=== PATIENT | female | born 1970 | race Two or more races ===

== ENCOUNTER 2022-11-09 19:04 | Emergency (ER) | payer MEDICAID, OTHER ==
[~2022-11-09] VITALS: Ht 154.9 cm; Wt 104.5 kg
[2022-11-09 19:28] VITALS: BP 145/74; PULSE 111; RESP 20; TEMP 98.5; O2SAT 97
[2022-11-09] MEDS ORDERED: CYCL-839 PO (22:42)
[2022-11-09] MEDS ORDERED: HYDR-4902 PO (22:42)
[2022-11-09] MEDS ORDERED: DexAMETHasone SOD PHOS 10MG/1ML VIAL INJ IM ONE (22:45)
[2022-11-09] MEDS ORDERED: KETOROLAC TROMETH 60MG/2ML VIAL IM ONE (22:45)
[2022-11-09] MEDS ORDERED: HYDROcodone-ACET 7.5/325MG TAB PO ONE (22:45)
== END 2022-11-09 22:56 | disposition home or self-care (01) ==
LOC: ER 19:06
DX: G89.29 Other chronic pain (principal); M54.50 Low back pain, unspecified; M62.838 Other muscle spasm; E11.9 Type 2 diabetes mellitus without complications
CPT/HCPCS: 72100; 82962; 96372; 99284; J1100; J1885

== ENCOUNTER 2023-09-13 13:27 | Inpatient (IN) | payer MEDICAID ==
[~2023-09-13] VITALS: Ht 154.9 cm; Wt 106.3 kg
[~2023-09-13 13:27] MED LIST: CYCL-839 PO; HYDR-4902 PO
[2023-09-13 14:48] LABS: Urine Bacteria None Seen /hpf (None Seen)
[2023-09-13 15:11] LABS: Basophils # (auto) 0.1 10 ^3/uL (0-0.2); Eosinophils # (auto) 0.4 10 ^3/uL (0-0.8); Eosinophils % (auto) 2.9 % (0.0-7.0); Monocytes # (auto) 0.6 10 ^3/uL (0-1.3)
[2023-09-13 15:12] LABS: Hematocrit 42.1 % (36.0-46.0); Lymphocytes # (auto) 5.1 10 ^3/uL (0.4-5.4); Lymphocytes % (auto) 36.1 % (10.0-50.0); Mean Corpuscular Hgb Conc. 33.3 g/dL (32.0-36.0); Mean Corpuscular Volume 81.1 fL (80.0-100.0); Monocytes % (auto) 4.5 % (0.0-12.0); Neutrophils # (auto) 7.9 10 ^3/uL (1.6-8.6); Neutrophils % (auto) 55.5 % (37.0-80.0); Nucleated Red Blood Cells % 0.1 %; Red Cell Distribution Width 14.8 % (11.8-14.3); White Blood Cell 14.1 10^3/uL (4.4-10.8)
[2023-09-13 15:30] LABS: Alanine Aminotransferase 34 U/L (7-40); Albumin 4.3 g/dL (3.2-4.8); Alkaline Phosphatase 123 U/L (46-116); Anion Gap 6 (5-15); Aspartate Aminotransferase 23 U/L (13-40); BUN/Creatinine Ratio 21.5 (10.0-20.0); Bilirubin, Total 0.3 mg/dL (0.2-1.0); Blood Urea Nitrogen 17 mg/dL (9-23); Calcium 10.2 mg/dL (8.7-10.4); Carbon Dioxide 28 mmol/L (20-30); Chloride 106 mmol/L (98-107); Glucose 163 mg/dL (74-106); Potassium 4.4 mmol/L (3.5-5.1); Sodium 140 mmol/L (136-145); Total Protein 7.4 g/dL (5.7-8.2)
[2023-09-13 15:40] LABS: Lactic Acid w/Reflex 2.1 mmol/L (0.4-2.0)
[2023-09-13 16:09] LABS: Urine Blood Negative /uL (Negative); Urine Budding Yeast OCCASIONAL /hpf (None Seen); Urine Clarity Clear (Clear); Urine Color Colorless (Yellow); Urine Mucus FEW (None Seen); Urine Protein, UAD Negative (Negative); Urine Specific Gravity 1.011 (1.001-1.035); Urine Urobilinogen Normal (Negative); Urine WBC 1 /hpf (0 - 5)
[2023-09-13] MEDS: SODIUM CHLORIDE 0.9% 1,000 ML IV ONE (17:30)
[2023-09-13] MEDS: cefTRIAXone 1GM/50ML D5W 50 ML IV ONE ×2 (18:56→18:59)
[2023-09-13] MEDS: HYDROcodone-ACET 5/325MG TAB PO ONE ×2 (18:57→21:29)
[2023-09-13] MEDS: DexAMETHasone SOD PHOS 10MG/1ML VIAL INJ IV ONE (18:58)
[2023-09-13] MEDS: DexAMETHasone SOD PHOS 4 MG/1ML SDV INJ ONE (18:58)
[2023-09-13] MEDS: KETOROLAC TROMETH 30 MG/ML 1ML VIAL IV ONE ×2 (18:58→21:29)
[2023-09-13] MEDS ORDERED: DOCUSATE SOD 100 MG CAP PO PRN (22:00)
[2023-09-13] MEDS ORDERED: ONDANSETRON HCL 4 MG/2 ML VIAL IV PRN (22:00)
[2023-09-13] MEDS: SODIUM CHLOR 0.9% PF (SALINE LOCK) 10ML VIAL/SYR IV SCH (22:28)
[2023-09-13 22:31] LABS: Erythrocyte Sedimentation Rate 40 mm/hr (0-20)
[2023-09-13] MEDS ORDERED: MORPHINE SULFATE INJ 2 MG/ml SYRG IV PRN (22:45)
[2023-09-13] MEDS ORDERED: NITROGLYCERIN 0.4 MG SL TAB SL PRN (22:45)
[2023-09-13] MEDS ORDERED: DEXTROSE (50%) 50ML SYRG IV PRN (23:15)
[2023-09-14] VITALS (8 sets, daily range): BP systolic 124–136; BP diastolic 77–92; PULSE 73–89; RESP 17–18; TEMP 97.5–98.2; O2SAT 94–97
[2023-09-14] MEDS: ACCU-CHEK COMFORT CURVE STRIP VI SCH (05:58)
[2023-09-14] MEDS: InsuLIN REG 1unit/0.01ml Soln (100units/ml) SC SCH ×2 (05:58→21:42)
[2023-09-14 08:38] LABS: Basophils # (auto) 0 10 ^3/uL (0-0.2); Eosinophils # (auto) 0 10 ^3/uL (0-0.8); Mean Corpuscular Hemoglobin 26.9 pg (28.0-32.0); Monocytes # (auto) 0.2 10 ^3/uL (0-1.3); Neutrophils # (auto) 12.7 10 ^3/uL (1.6-8.6)
[2023-09-14 08:39] LABS: Basophils % (auto) 0.1 % (0.0-2.0); Hematocrit 41.4 % (36.0-46.0); Hemoglobin 13.5 g/dL (12.2-16.2); Lymphocytes # (auto) 2.6 10 ^3/uL (0.4-5.4); Lymphocytes % (auto) 16.6 % (10.0-50.0); Mean Corpuscular Hgb Conc. 32.7 g/dL (32.0-36.0); Mean Corpuscular Volume 82.2 fL (80.0-100.0); Monocytes % (auto) 1.1 % (0.0-12.0); Neutrophils % (auto) 82.2 % (37.0-80.0); Nucleated Red Blood Cells % 0.1 %; Red Blood Cells 5.03 10^6/uL (4.0-5.20); Red Cell Distribution Width 14.5 % (11.8-14.3); White Blood Cell 15.5 10^3/uL (4.4-10.8)
[2023-09-14 08:56] LABS: Alanine Aminotransferase 36 U/L (7-40); Albumin 4.2 g/dL (3.2-4.8); Alkaline Phosphatase 118 U/L (46-116); Anion Gap 10 (5-15); Aspartate Aminotransferase 17 U/L (13-40); BUN/Creatinine Ratio 19.4 (10.0-20.0); Blood Urea Nitrogen 14 mg/dL (9-23); Calcium 9.5 mg/dL (8.5-10.1); Carbon Dioxide 22 mmol/L (20-30); Chloride 106 mmol/L (98-107); Glucose 209 mg/dL (74-106); Potassium 4.4 mmol/L (3.5-5.1); Sodium 138 mmol/L (136-145)
[2023-09-14 08:57] LABS: Bilirubin, Total 0.2 mg/dL (0.2-1.0); Total Protein 7.4 g/dL (5.7-8.2)
[2023-09-14] MEDS ORDERED: metroNIDAZOLE 500MG/100ML 100 ML IV ONE (11:15)
[2023-09-14] MEDS: KETOROLAC TROMETH 30 MG/ML 1ML VIAL IV ONE (11:15)
[2023-09-14] MEDS: cefTRIAXone 1GM/50ML D5W 50 ML IV SCH (11:31)
[2023-09-14] MEDS: levoFLOXacin 500MG 100 ML IV ONE (13:00)
[2023-09-14] MEDS: metroNIDAZOLE 500MG/100ML 100 ML IV SCH (14:03)
[2023-09-14 17:38] LABS: Erythrocyte Sedimentation Rate 35 mm/hr (0-20)
[2023-09-15] VITALS (7 sets, daily range): BP systolic 106–125; BP diastolic 56–77; PULSE 70–83; RESP 17–20; TEMP 97.8–98.3; O2SAT 94–98
[2023-09-15] MEDS: MORPHINE SULFATE INJ 2 MG/ml SYRG IV PRN (04:21)
[2023-09-15 06:48] LABS: Basophils # (auto) 0 10 ^3/uL (0-0.2); Basophils % (auto) 0.2 % (0.0-2.0); Eosinophils # (auto) 0 10 ^3/uL (0-0.8); Eosinophils % (auto) 0.1 % (0.0-7.0); Hemoglobin 12.8 g/dL (12.2-16.2); Mean Corpuscular Hemoglobin 26.8 pg (28.0-32.0); Monocytes # (auto) 0.9 10 ^3/uL (0-1.3); Monocytes % (auto) 4.5 % (0.0-12.0); Red Blood Cells 4.78 10^6/uL (4.0-5.20); Red Cell Distribution Width 14.4 % (11.8-14.3)
[2023-09-15 06:50] LABS: Hematocrit 39.5 % (36.0-46.0); Lymphocytes # (auto) 5.1 10 ^3/uL (0.4-5.4); Lymphocytes % (auto) 25.2 % (10.0-50.0); Mean Corpuscular Hgb Conc. 32.4 g/dL (32.0-36.0); Mean Corpuscular Volume 82.5 fL (80.0-100.0); Neutrophils # (auto) 14.1 10 ^3/uL (1.6-8.6); White Blood Cell 20.2 10^3/uL (4.4-10.8)
[2023-09-15 07:24] LABS: Alanine Aminotransferase 27 U/L (7-40); Albumin 3.8 g/dL (3.2-4.8); Alkaline Phosphatase 103 U/L (46-116); Anion Gap 7 (5-15); Aspartate Aminotransferase 15 U/L (13-40); BUN/Creatinine Ratio 19.7 (10.0-20.0); Blood Urea Nitrogen 13 mg/dL (9-23); Calcium 9.1 mg/dL (8.5-10.1); Carbon Dioxide 24 mmol/L (20-30); Chloride 109 mmol/L (98-107); Glucose 109 mg/dL (74-106); Potassium 4.4 mmol/L (3.5-5.1); Sodium 140 mmol/L (136-145)
[2023-09-15 07:25] LABS: Bilirubin, Total 0.3 mg/dL (0.2-1.0); Total Protein 6.7 g/dL (5.7-8.2)
[2023-09-15] MEDS: levoFLOXacin 500MG 100 ML IV SCH (11:14)
[2023-09-15] MEDS: FLUCONAZOLE 200MG/100ML 100 ML IV ONE (12:40)
[2023-09-16] VITALS (7 sets, daily range): BP systolic 95–132; BP diastolic 48–87; PULSE 64–86; RESP 17–19; TEMP 97.3–98; O2SAT 94–97
[2023-09-16 05:59] LABS: Basophils # (auto) 0.1 10 ^3/uL (0-0.2); Basophils % (auto) 0.5 % (0.0-2.0); Eosinophils # (auto) 0.3 10 ^3/uL (0-0.8); Eosinophils % (auto) 1.9 % (0.0-7.0); Hematocrit 38.4 % (36.0-46.0); Hemoglobin 12.7 g/dL (12.2-16.2); Lymphocytes # (auto) 6.5 10 ^3/uL (0.4-5.4); Lymphocytes % (auto) 42.5 % (10.0-50.0); Mean Corpuscular Hemoglobin 27.4 pg (28.0-32.0); Mean Corpuscular Hgb Conc. 33.1 g/dL (32.0-36.0); Mean Corpuscular Volume 82.9 fL (80.0-100.0); Monocytes # (auto) 0.8 10 ^3/uL (0-1.3); Monocytes % (auto) 5.4 % (0.0-12.0); Neutrophils # (auto) 7.6 10 ^3/uL (1.6-8.6); Neutrophils % (auto) 49.7 % (37.0-80.0); Nucleated Red Blood Cells % 0.1 %; Red Blood Cells 4.63 10^6/uL (4.0-5.20); Red Cell Distribution Width 14.6 % (11.8-14.3); White Blood Cell 15.3 10^3/uL (4.4-10.8)
[2023-09-16 07:09] LABS: Erythrocyte Sedimentation Rate 19 mm/hr (0-20)
[2023-09-16] MEDS: FLUCONAZOLE 200MG/100ML 100 ML IV SCH (09:06)
[2023-09-16] MEDS: ACETAMINOPHEN 325 MG TAB PO PRN (11:41)
[2023-09-16] MEDS: CALCIUM CARB 500 MG CHEW TAB PO PRN (18:44)
[2023-09-17] MEDS: HYDROcodone-ACET 5/325MG TAB PO PRN (00:37)
[2023-09-17 01:00] VITALS: BP 109/66; PULSE 77; RESP 18; TEMP 97.6; O2SAT 96
[2023-09-17 05:00] VITALS: BP 100/62; PULSE 71; RESP 18; TEMP 97.5; O2SAT 95
[2023-09-17 08:50] VITALS: BP 122/77; PULSE 81; RESP 20; TEMP 97.3; O2SAT 97
[2023-09-17 13:00] VITALS: BP 132/78; PULSE 85; RESP 18; TEMP 97.6; O2SAT 97
[2023-09-17] MEDS: KETOROLAC TROMETH 30 MG/ML 1ML VIAL IV ONE (15:26)
[2023-09-17] MEDS: LIDOCAINE 5% TOPICAL PATCH TOP ONE (15:27)
[2023-09-17 16:42] VITALS: BP 119/78; PULSE 79; RESP 20; TEMP 98; O2SAT 96
[2023-09-17 21:00] VITALS: BP 126/76; PULSE 102; RESP 20; TEMP 97.7; O2SAT 92
[2023-09-18 01:00] VITALS: BP 132/66; PULSE 84; RESP 17; TEMP 98.3; O2SAT 94
[2023-09-18 05:00] VITALS: BP 121/61; PULSE 76; RESP 20; TEMP 97.8; O2SAT 93
[2023-09-18 05:12] LABS: Basophils # (auto) 0.1 10 ^3/uL (0-0.2); Basophils % (auto) 0.5 % (0.0-2.0); Eosinophils # (auto) 0.5 10 ^3/uL (0-0.8); Lymphocytes # (auto) 6.2 10 ^3/uL (0.4-5.4); Lymphocytes % (auto) 39.4 % (10.0-50.0); Mean Corpuscular Hemoglobin 27.3 pg (28.0-32.0); Mean Corpuscular Hgb Conc. 33.3 g/dL (32.0-36.0); Mean Corpuscular Volume 81.9 fL (80.0-100.0); Monocytes % (auto) 6.2 % (0.0-12.0); Neutrophils % (auto) 50.9 % (37.0-80.0); Red Blood Cells 4.77 10^6/uL (4.0-5.20); Red Cell Distribution Width 14.5 % (11.8-14.3); White Blood Cell 15.6 10^3/uL (4.4-10.8)
[2023-09-18 05:23] LABS: Anion Gap 7 (5-15); Carbon Dioxide 24 mmol/L (20-30); Chloride 108 mmol/L (98-107); Potassium 4.3 mmol/L (3.5-5.1); Sodium 139 mmol/L (136-145)
[2023-09-18 05:24] LABS: Calcium 9.3 mg/dL (8.5-10.1)
[2023-09-18 05:29] LABS: BUN/Creatinine Ratio 20.8 (10.0-20.0); Blood Urea Nitrogen 15 mg/dL (9-23); Glucose 145 mg/dL (74-106)
[2023-09-18 08:46] VITALS: BP 123/78; PULSE 72; RESP 18; TEMP 97.9; O2SAT 95
[2023-09-18] MEDS: LIDOCAINE 5% TOPICAL PATCH TOP SCH (10:08)
[2023-09-18] MEDS ORDERED: PANT40TA2 PO (10:43)
[2023-09-18] MEDS ORDERED: LEVO500T91 PO (10:43)
[2023-09-18] MEDS ORDERED: METR-344 PO (10:43)
[2023-09-18] MEDS ORDERED: CARI250T PO (10:43)
[2023-09-18] MEDS ORDERED: PANTOPRAZOLE 40 MG/10 ML VIAL INJ IV ONE (10:45)
[2023-09-18] MEDS: CARISOPRODOL 350 MG TAB PO PRN (11:45)
[2023-09-18] MEDS: FLEET ENEMA(ADULT) 135 ML PR ONE (11:45)
[2023-09-18 13:00] VITALS: BP 122/81; PULSE 73; RESP 18; TEMP 98; O2SAT 95
[2023-09-18] MEDS: levoFLOXacin 500 MG TAB PO ONE (13:00)
[2023-09-18] MEDS: PANTOPRAZOLE 40 MG TAB PO ONE (13:04)
[2023-09-18] MEDS: metroNIDAZOLE 500 MG TAB PO ONE (13:04)
[2023-09-18] MEDS ORDERED: GASTROGRAFIN 120 ML SOL ONE (13:34)
[2023-09-18 17:55] VITALS: BP 125/80; PULSE 74; RESP 18; TEMP 97.8; O2SAT 98
== END 2023-09-18 18:50 | disposition home or self-care (01) | DRG 720 ==
LOC: ER 13:29 → OVERFLOW 22:45 → WEST WING 09-14 01:47
PROVIDERS: ADMIT Nurse Practitioner Family; ATTEND Nurse Practitioner Acute Care
DX: A41.9 Sepsis, unspecified organism (principal); N30.80 Other cystitis without hematuria; E11.65 Type 2 diabetes mellitus with hyperglycemia; E66.01 Morbid (severe) obesity due to excess calories; G89.29 Other chronic pain; K21.9 Gastro-esophageal reflux disease without esophagitis; M47.896 Other spondylosis, lumbar region; M48.061 Spinal stenosis, lumbar region without neurogenic claudication; Z68.41 Body mass index [BMI] 40.0-44.9, adult; Z83.3 Family history of diabetes mellitus; Z79.899 Other long term (current) drug therapy; Z79.4 Long term (current) use of insulin
CPT/HCPCS: 36415; 72148; 74176; 74280; 76856; 80048; 80053; 81001; 82962; 83036; 83605; 84484; 85025; 85652; 86141; 87040; 87086; 87088; 96360; G0378; J1100; J1450; J1815; J1885; J1956; J3490

== ENCOUNTER 2023-09-23 12:55 | Emergency (ER) | payer MEDICAID ==
[~2023-09-23] VITALS: Ht 154.9 cm; Wt 104.5 kg
[~2023-09-23 12:55] MED LIST changes: +CARI250T PO; -CYCL-839 PO; -HYDR-4902 PO; +LEVO500T91 PO; +METR-344 PO; +PANT40TA2 PO
[2023-09-23] MEDS: KETOROLAC TROMETH 60MG/2ML VIAL IM ONE (15:44)
[2023-09-23] MEDS: methylPREDNISolone SOD SUCC 125 MG/2 ML VL IM ONE (15:44)
[2023-09-23] MEDS: HYDROcodone-ACET 5/325MG TAB PO ONE (15:54)
[2023-09-23 16:30] VITALS: BP 124/75; PULSE 80; RESP 16; TEMP 97.8; O2SAT 97
[2023-09-23] MEDS ORDERED: CYCL-837 PO (16:35)
[2023-09-23] MEDS ORDERED: MELO7.5T7 PO (16:35)
== END 2023-09-23 16:33 | disposition home or self-care (01) ==
LOC: EDBD 12:55 → ER 12:55
DX: G89.29 Other chronic pain (principal); M54.59 Other low back pain; E11.9 Type 2 diabetes mellitus without complications; Z79.1 Long term (current) use of non-steroidal anti-inflammatories (NSAID); Z79.899 Other long term (current) drug therapy
CPT/HCPCS: 96372; 99284; J1885; J2919

== ENCOUNTER 2023-11-03 18:22 | Emergency (ER) | payer MEDICAID ==
[~2023-11-03] VITALS: Ht 154.9 cm; Wt 99.6 kg
[~2023-11-03 18:22] MED LIST changes: +CYCL-837 PO; +MELO7.5T7 PO
[2023-11-03 18:45] VITALS: BP 131/77; PULSE 96; RESP 18; O2SAT 94
[2023-11-03] MEDS ORDERED: GABA-1308 PO (20:40)
[2023-11-03] MEDS: KETOROLAC TROMETH 60MG/2ML VIAL IM ONE (20:51)
== END 2023-11-03 20:57 | disposition home or self-care (01) ==
LOC: ER 18:22
DX: E11.40 Type 2 diabetes mellitus with diabetic neuropathy, unspecified (principal); M54.16 Radiculopathy, lumbar region; Z79.899 Other long term (current) drug therapy
CPT/HCPCS: 96372; 99283; J1885

== ENCOUNTER → 2024-02-18 | Outpatient (CLI) | payer MEDICAID ==
[~2024-02-18] MED LIST changes: +GABA-1308 PO
[2024-02-18 11:29] LABS: Basophils # (auto) 0.1 10 ^3/uL (0-0.2); Basophils % (auto) 0.6 % (0.0-2.0); Eosinophils # (auto) 0.3 10 ^3/uL (0-0.8); Eosinophils % (auto) 2.9 % (0.0-7.0); Hematocrit 42.1 % (36.0-46.0); Hemoglobin 13.9 g/dL (12.2-16.2); Lymphocytes # (auto) 4.3 10 ^3/uL (0.4-5.4); Lymphocytes % (auto) 36.5 % (10.0-50.0); Mean Corpuscular Hemoglobin 27.2 pg (28.0-32.0); Mean Corpuscular Hgb Conc. 33.1 g/dL (32.0-36.0); Monocytes # (auto) 0.8 10 ^3/uL (0-1.3); Monocytes % (auto) 6.6 % (0.0-12.0); Neutrophils # (auto) 6.2 10 ^3/uL (1.6-8.6); Neutrophils % (auto) 53.4 % (37.0-80.0); Platelet Count (auto) 333 10^3/uL (140-450); Red Blood Cells 5.13 10^6/uL (4.0-5.20); Red Cell Distribution Width 14.2 % (11.8-14.3); White Blood Cell 11.6 10^3/uL (4.4-10.8)
[2024-02-18 11:43] LABS: Urine Bacteria FEW /hpf (None Seen); Urine Blood Negative /uL (Negative); Urine Clarity Clear (Clear); Urine Color Light-Yellow (Yellow); Urine Protein, UAD Negative (Negative); Urine Urobilinogen Normal (Negative); Urine WBC 9 /hpf (0 - 5)
[2024-02-18 12:00] LABS: Alanine Aminotransferase 20 U/L (7-40); Albumin 4.4 g/dL (3.2-4.8); Alkaline Phosphatase 131 U/L (46-116); Anion Gap 8 (5-15); Aspartate Aminotransferase 13 U/L (13-40); BUN/Creatinine Ratio 13.8 (10.0-20.0); Bilirubin, Total 0.5 mg/dL (0.2-1.0); Blood Urea Nitrogen 12 mg/dL (9-23); Calcium 10.5 mg/dL (8.7-10.4); Carbon Dioxide 28 mmol/L (20-31); Chloride 107 mmol/L (98-107); Cholesterol 232 mg/dL (< 200); Glucose 102 mg/dL (74-106); HDL Cholesterol 44 mg/dL (40-59); LDL Cholesterol 150 mg/dL (< 100); Potassium 4.4 mmol/L (3.5-5.1); Sodium 143 mmol/L (136-145); Total Protein 7.6 g/dL (5.7-8.2); Triglycerides 151 mg/dL (< 150)
[2024-02-18 12:08] LABS: Wright Stain Ready for Review
== END | disposition home or self-care (01) ==
LOC: LAB 10:41
DX: E11.9 Type 2 diabetes mellitus without complications (principal); E55.9 Vitamin D deficiency, unspecified; E78.5 Hyperlipidemia, unspecified
CPT/HCPCS: 36415; 80053; 80061; 81001; 82306; 83036; 84443; 85025

== ENCOUNTER 2024-04-04 18:33 | Inpatient (IN) | payer MEDICAID ==
[~2024-04-04] VITALS: Ht 154.9 cm; Wt 100.2 kg
--- NOTE | 2024-04-04 19:27 | ED.PDOC ---
History of Present Illness HPI Comments 53F BIBA w/ prior Hx of being lactose intolerant and w/ prior Hx of tubal ligation which may be associated to the c/c of ABD pain. Since the pt is lactose intolerant the pt decided to eat yogurt which made the pt to start to have ABD pain which radiated to the back. PMHx of DM. Denies chills, fever, N/V/D, SOB, CP or other associated symptom's, modifiers, or recent injuries or sick contact at this time. Chief Complaint: Abdominal Pain Time Seen by MD: 18:45 Primary Care Provider: LUIS Reviewed Notes: Nurses Notes, Medications, Allergies Allergies: Coded Allergies: NO KNOWN ALLERGIES (Unverified , 11/09/22) Home Meds Active Scripts Gabapentin (Gabapentin) 100 Mg Cap, 1 CAP PO TID, #60 CAP 2 Refills Start with one capsule at sleep. Increase to one capsule twice daily after 3 days. Then one capsule three times daily after one week if tolerable. Prov:CIRO FORDE CIVIL ENGINEER [employer] 11/03/23 Meloxicam (Meloxicam) 7.5 Mg Tab, 1 TAB PO DAILY for 30 Days, #30 TAB 0 Refills Prov:EL WINTERS SUPPORTABILITY ENGINEER 09/23/23 Cyclobenzaprine Hcl (Cyclobenzaprine Hcl) 5 Mg Tab, 1 TAB PO QHSP PRN for 30 Days, #30 TAB 0 Refills Prov:EL WINTERS SUPPORTABILITY ENGINEER 09/23/23 Carisoprodol (Soma) 250 Mg Tab, 250 MG PO Q8HP PRN for 7 Days, #21 TAB Prov:JEAN BLAIR SUPPORTABILITY ENGINEER 09/18/23 Pantoprazole Sodium Sesquihydr (Protonix) 40 Mg Tab, 40 MG PO DAILY for 30 Days, #30 TAB 1 Refill Prov:JEAN BLAIR SUPPORTABILITY ENGINEER 09/18/23 Levofloxacin Hemihydrate (LEVAQUIN 500 MG) 500 Mg Tab, 500 MG PO DAILY for 7 Days, #7 TAB Prov:JEAN BLAIR SUPPORTABILITY ENGINEER 09/18/23 Metronidazole (Flagyl) 500 Mg Tab, 500 MG PO TID for 7 Days, #21 TAB Prov:JEAN BLAIR NP 09/18/23 Information Source: Patient, Emergency Med Personnel Mode of Arrival: EMS Severity: Moderate Timing: Minutes Duration: Since onset, Minutes Prehospital treatment: None Past Medical History PAST MEDICAL HISTORY: DM Surgical History: Tubal Ligation HEALTH CARE SANITARY TECHNICIAN History: No Pertinent HEALTH CARE SANITARY TECHNICIAN History Family History Family History: Reviewed,noncontributory to illness, Unknown Social History Smoker: Non-Smoker Alcohol: Denies ETOH Use Drugs: Denies Drug Use Lives In: Home Constitutional: denies: chills, diaphoresis, fatigue, fever, malaise, sweats, weakness, others EENTM: denies: blurred vision, double vision, ear bleeding, ear discharge, ear drainage, ear pain, ear ringing, eye pain, eye redness, hearing loss, mouth pain, mouth swelling, nasal discharge, nose bleeding, nose congestion, nose pain, photophobia, tearing, throat pain, throat swelling, voice changes, others Respiratory: denies: cough, hemoptysis, orthopnea, SOB at rest, shortness of breath, SOB with excertion, stridor, wheezing, others Cardiovascular: denies: chest pain, dizzy spells, diaphoresis, Dyspnea on exertion, edema, irregular heart beat, left arm pain, lightheadedness, palpitations, PND, syncope, others Gastrointestinal: reports: abdominal pain; denies: abdomen distended, blood streaked bowels, constipated, diarrhea, dysphagia, difficulty swallowing, hematemesis, melena, nausea, poor appetite, poor fluid intake, rectal bleeding, rectal pain, vomiting, others Genitourinary: denies: abnormal vagina bleeding, burning, dyspareunia, dysuria, flank pain, frequency, hematuria, incontinence, pain, , vagina discharge, urgency, others Neurological: denies: dizziness, fainting, headache, left sided numbness, left sided weakness, numbness, paresthesia, pre-existing deficit, right sided numbness, right sided weakness, seizure, speech problems, tingling, tremors, weakness, others Musculoskeletal: reports: back pain; denies: gout, joint pain, joint swelling, muscle pain, muscle stiffness, neck pain, others Integumetry: denies: bruises, change in color, change in hair/nails, dryness, laceration, lesions, lumps, rash, wounds, others Allergic/Immunocompromised: denies: Difficulty Healing, Frequent Infections, Hives, Itching, others Hematologic/Lymphatic: denies: anemia, blood clots, easy bleeding, easy br uising, swollen glands, others Endocrine: denies: excessive hunger, excessive sweating, excessive thirst, excessive urination, flushing, intolerance to cold, intolerance to heat, unexplained weight gain, unexplained weight loss, others Psychiatric: denies: anxiety, bipolar disorder, depression, hopeless, panic disorder, schizophrenia, sleepless, suicidal, others All Other Systems: Reviewed and Negative Physical Exam Exam Comments tenderness to the right epigastric area General Appearance: No Apparent Distress, Normal HEENT: Normal ENT Inspection, Pharynx Normal, TMs Normal Neck: Full Range of Motion, Non-Tender, Normal, Normal Inspection Respiratory: Chest Non-Tender, Lungs Clear, No Accessory Muscle Use, No Respiratory Distress, Normal Breath Sounds Cardiovascular: No Edema, No JVD, No Murmur, No Gallop, Normal Peripheral Pulses, Regular Rate/Rhythm Breast Exam: Deferred Gastrointestinal: No Organomegaly, Non Tender, No Pulsatile Mass, Normal Bowel Sounds, Soft Genitalia: Deferred Pelvic: Deferred Rectal: Deferred Extremities: No calf tenderness, Normal capillary refill, Normal inspection, Normal range of motion, Non-tender, No pedal edema Musculoskeletal : Apperance: Normal Neurologic: Alert, detective and intelligence analyst II-XII nml as Tested, No Motor Deficits, Normal Affect, Normal Mood, No Sensory Deficits Cerebellar Function: Normal Reflexes: Normal Skin: Dry, Normal Color, Warm Lymphatic: No Adenopathy Was a procedure done? Was a procedure done?: No Differential Dx Considerations may include: cholecystitis, cholelithiasis, pancreatitis, related conditions, uti, sbo, gastritis, choledocholithiasis, ascending cholangitis X-Ray, Labs, Meds, VS Vital Signs Date Time Temp Pulse Resp B/P (MAP) Pulse Ox O2 Delivery O2 Flow Rate FiO2 04/04/24 18:56 97.7 76 18 163/87 (112) 100 Lab Test 04/04/24 19:42 Range/Units White Blood Count 18.1 H 4.4-10.8 10^3/uL Red Blood Count 5.30 H 4.0-5.20 10^6/uL Hemoglobin 14.7 12.2-16.2 g/dL Hematocrit 43.3 36.0-46.0 % Mean Corpuscular Volume 81.7 80.0-100.0 fL Mean Corpuscular Hemoglobin 27.8 L 28.0-32.0 pg Mean Corpuscular Hemoglobin Concent 34.0 32.0-36.0 g/dL Red Cell Distribution Width 15.0 H 11.8-14.3 % Platelet Count 415 140-450 10^3/uL Mean Platelet Volume 7.9 6.9-10.8 fL Neutrophils (%) (Auto) 71.5 37.0-80.0 % Lymphocytes (%) (Auto) 21.6 10.0-50.0 % Monocytes (%) (Auto) 4.3 0.0-12.0 % Eosinophils (%) (Auto) 1.7 0.0-7.0 % Basophils (%) (Auto) 0.9 0.0-2.0 % Neutrophils # (Auto) 12.9 H 1.6-8.6 10 ^3/uL Lymphocytes # (Auto) 3.9 0.4-5.4 10 ^3/uL Monocytes # (Auto) 0.8 0-1.3 10 ^3/uL Eosinophils # (Auto) 0.3 0-0.8 10 ^3/uL Basophils # (Auto) 0.2 0-0.2 10 ^3/uL Nucleated Red Blood Cells 0.1 % Sodium Level 142 136-145 mmol/L Potassium Level 4.0 3.5-5.1 mmol/L Chloride Level 104 98-107 mmol/L Carbon Dioxide Level 26 20-31 mmol/L Anion Gap 12 5-15 Blood Urea Nitrogen 15 9-23 mg/dL Creatinine 0.78 0.550-1.02 mg/dL Glomerular Filtration Rate Calc 92 >90 mL/min BUN/Creatinine Ratio 19.2 10.0-20.0 Serum Glucose 131 H 74-106 mg/dL Calcium Level 10.5 H 8.7-10.4 mg/dL Total Bilirubin 0.5 0.2-1.0 mg/dL Aspartate Amino Transferase (AST) 54 H 13-40 U/L Alanine Aminotransferase (ALT) 41 H 7-40 U/L Alkaline Phosphatase 156 H 46-116 U/L Total Protein 7.8 5.7-8.2 g/dL Albumin 4.8 3.2-4.8 g/dL Lipase 65 H 12-53 U/L Beta HCG, Quantitative 3.1 1.5-4.2 mIU/mL Time of 1ST Reevaluation: 19:00 Reevaluation 1ST: Unchanged Time of 2ND Reevaluation: 20:21 Reevaluation 2ND: Improved Patient Education/Counseling: Diagnosis, Treatment, Prognosis, Need For Follow Up Family Education/Counseling: No Family Present Additional Information - I reviewed the following notes from patient's past medical encounters:11/03/23 - The following tests were ordered, and results were reviewed by me: PHA, US, LAB - Additional information was gathered from interviewing the following independent Historian: EMT - I reviewed and agreed with the following test results read by other provider: US - I discussed treatments and results with medical personnel and: (consultants, family) pt does not have cholecystitis or cholelithiasis by US, but does have pancreatitis. no abscess or cyst/pseudocysts are seen. she will be admitted for pain control, bowel rest, and further evaluation Departure 1 Departure Time of Disposition: 20:22 Impression: Primary Impression: Acute pancreatitis Qualified Codes: K85.90 - Acute pancreatitis without necrosis or infection, unspecified Disposition: ADMITTED INPATIENT Admit to: Med Surg Condition: Stable Discharged With: Self Critical Care Note Critical Care Time?: Yes (55 min-critical care time only) Critical care comment: due to concerns for patient's condition deteriorating, the care required my highest level of attention and readiness to intervene. i assessed the patient's condition, ordered the proper tests and treatments, reassessed for response and reviewed the results. i communicated with medical personnel and formulated a plan of care. total critical care time does not include any procedures Stability Stability form required: No I personally scribed for GIORGI LEON MD ([email or web address]) on 04/04/24 at 19:27. Electronically submitted by Maxim Huertas ([email or web address]). GIORGI LEON MD Apr 04, 2024 19:27
--- NOTE | 2024-04-04 19:28 | DVH ---
INDICATION: shaina pain TECHNIQUE: Multiple real-time sonographic images of the abdomen were obtained. COMPARISON: None FINDINGS: Increased parenchymal echogenicity suggests steatosis.. The liver measures 16.05 cm. No in trahepatic biliary ductal dilatation is noted. The gallbladder wall measures 0.22 cm and is unremarkable. No gallstones or sludge is seen. The co mmon duct measures 0.26 cm and is unremarkable. No pericholecystic fluid is noted. The right kidney measures 9.95 cm. No hydronephrosis. The pancreas parenchyma appears abnormal. IMPRESSION: 1. Liver measures 16.05 cm with echogenic parenchyma suggesting steatosis. 2. Gallbladder appears normal 3. Pancreatic parenchyma is abnormal suggesting pancreatitis correlate with lab findings.
[2024-04-04 20:10] LABS: Basophils # (auto) 0.2 10 ^3/uL (0-0.2); Basophils % (auto) 0.9 % (0.0-2.0); Eosinophils # (auto) 0.3 10 ^3/uL (0-0.8); Eosinophils % (auto) 1.7 % (0.0-7.0); Hematocrit 43.3 % (36.0-46.0); Hemoglobin 14.7 g/dL (12.2-16.2); Lymphocytes # (auto) 3.9 10 ^3/uL (0.4-5.4); Lymphocytes % (auto) 21.6 % (10.0-50.0); Mean Corpuscular Hemoglobin 27.8 pg (28.0-32.0); Mean Corpuscular Volume 81.7 fL (80.0-100.0); Monocytes # (auto) 0.8 10 ^3/uL (0-1.3); Monocytes % (auto) 4.3 % (0.0-12.0); Neutrophils # (auto) 12.9 10 ^3/uL (1.6-8.6); Neutrophils % (auto) 71.5 % (37.0-80.0); Nucleated Red Blood Cells % 0.1 %; Platelet Count (auto) 415 10^3/uL (140-450); White Blood Cell 18.1 10^3/uL (4.4-10.8)
[2024-04-04 20:23] LABS: Albumin 4.8 g/dL (3.2-4.8); Anion Gap 12 (5-15); BUN/Creatinine Ratio 19.2 (10.0-20.0); Blood Urea Nitrogen 15 mg/dL (9-23); Carbon Dioxide 26 mmol/L (20-31); Chloride 104 mmol/L (98-107); Sodium 142 mmol/L (136-145)
[2024-04-04 20:24] LABS: Bilirubin, Total 0.5 mg/dL (0.2-1.0); Total Protein 7.8 g/dL (5.7-8.2)
[2024-04-04 20:26] LABS: Alanine Aminotransferase 41 U/L (7-40); Alkaline Phosphatase 156 U/L (46-116); Aspartate Aminotransferase 54 U/L (13-40); Calcium 10.5 mg/dL (8.7-10.4); Glucose 131 mg/dL (74-106); Lipase 65 U/L (12-53)
[2024-04-04] MEDS: ONDANSETRON HCL 4 MG/2 ML VIAL IV ONE (21:34)
[2024-04-04 21:35] VITALS: PULSE 89; RESP 18; O2SAT 98
[2024-04-04] MEDS: MORPHINE SULFATE INJ 2 MG/ml SYRG IV ONE (21:35)
[2024-04-04] MEDS: SODIUM CHLORIDE 0.9% 1,000 ML IV ONE (21:36)
[2024-04-04 22:06] VITALS: BP 133/79; PULSE 70; RESP 17; TEMP 97.6; O2SAT 98
[2024-04-04] MEDS ORDERED: SODIUM CHLORIDE 0.9% 1,000 ML IV ONE (22:30)
[2024-04-04] MEDS ORDERED: HYDROmorphone HCL 2 MG/ML VL/or syr IV PRN (22:30)
--- NOTE | 2024-04-04 22:41 | DVHHPRES ---
History of Present Illness Resident Creating Document: INOCENCIO WORKMAN History of Present Illness This is a 53-year-old female with past medical history of type 2 diabetes mellitus, dyslipidemia, GERD, lactose intolerance, history of tubal ligation presented to the ED due to acute abdominal pain. The patient states that the pain started earlier this evening characterized by a sharp epigastric pain rated as 10/10 on the pain scale that radiates to the right upper quadrant and back. The patient states that the pain has been associated with nausea and vomiting. The patient denies fever/chills, chest pain, shortness of breath or any other symptoms. Initial labs showed a WBC of 18.1, BNP was normal but liver enzymes and alkaline phosphatase were slightly elevated. Gallbladder ultrasound came back showing that they gallbladder appear normal, steatosis of the liver and findings of possible pancreatitis. Patient was given 1 L of fluids, pain medicine. We will ordered a CT scan of the abdomen and admit the patient for further assessment and management. Cardiovascular: hyperipidemia GI: GERD Endocrine: Diabetes Past Medical History Lactose intolerance Past Surgical History: Tubal Ligation Past Surgical History Tubal ligation Family History: None Smoke: No ALCOHOL: none Drugs: None Lives: with Family Domestic Violence: Neg Review of Systems Constitutional: No: Fever, Chills, Sweats, Weakness, Malaise, Other Eyes: No: Pain, Vision change, Conjunctivae inflammation, Eyelid inflammation, Other, Redness ENT: No: Ear pain, Ear discharge, Nose pain, Nose discharge, Nose congestion, Mouth pain, Mouth swelling, Throat pain, Throat swelling, Other Respiratory: No: Cough, Dry, Shortness of breath, SOB with excertion, Wheezing, Hemoptysis, Pleuritic Pain, Sputum, Wheezing, Other Cardiovascular: No: Chest Pain, Palpitations, Orthopnea, Paroxysmal Noc. Dyspnea, Edema, Lt Headedness, Other Gastrointestinal: Nausea, Vomiting, Abdominal Pain; No: Diarrhea, Constipation, Melena, Hematochezia, Other Genitourinary: No Dysuria, No Frequency, No Incontinence, No Hematuria, No Retention, No Other Musculoskeletal: No: other, neck pain, shoulder pain, arm pain, back pain, hand pain, leg pain, foot pain Skin: No: Rash, Lesions, Jaundice, Bruising, Other Neurological: No: Weakness, Numbness, Incoordination, Change in speech, Confusion, Seizures, Other Allergies: Coded Allergies: NO KNOWN ALLERGIES (Unverified , 11/09/22) Exam Vital Signs Vital Signs Date Time Temp Pulse Resp B/P (MAP) Pulse Ox O2 Delivery O2 Flow Rate FiO2 04/04/24 21:35 89 18 152/86 04/04/24 21:35 98 Room Air* 0 21 04/04/24 21:30 99.1 99.1 General Appearance: Alert, Oriented X3, Cooperative, No acute distress HEENT: Atraumatic, PERRLA, EOMI, Mucous membr. moist/pink Respiratory: Clear to auscultation, Normal air movement Cardiovascular: Regular rate, Normal S1, Normal S2, No murmurs Abdominal: Normal bowel sounds, Soft, No masses, Other (Tenderness to palpation at the epigastric region and right upper quadrant.) Extremities: No clubbing, No cyanosis, No edema, Normal pulses, No tenderness/swelling Skin: No rashes, No breakdown, No significant lesion Neuro: Normal gait, Normal speech, Strength at 5/5 X4 ext, Normal tone, Sensation intact, Cranial nerves 3-12 NL, Reflexes 2+ Psych/Mental Status: Mental status NL, Mood NL Labs/Xrays Labs Test 04/04/24 19:42 Range/Units White Blood Count 18.1 H 4.4-10.8 10^3/uL Red Blood Count 5.30 H 4.0-5.20 10^6/uL Hemoglobin 14.7 12.2-16.2 g/dL Hematocrit 43.3 36.0-46.0 % Mean Corpuscular Volume 81.7 80.0-100.0 fL Mean Corpuscular Hemoglobin 27.8 L 28.0-32.0 pg Mean Corpuscular Hemoglobin Concent 34.0 32.0-36.0 g/dL Red Cell Distribution Width 15.0 H 11.8-14.3 % Platelet Count 415 140-450 10^3/uL Mean Platelet Volume 7.9 6.9-10.8 fL Neutrophils (%) (Auto) 71.5 37.0-80.0 % Lymphocytes (%) (Auto) 21.6 10.0-50.0 % Monocytes (%) (Auto) 4.3 0.0-12.0 % Eosinophils (%) (Auto) 1.7 0.0-7.0 % Basophils (%) (Auto) 0.9 0.0-2.0 % Neutrophils # (Auto) 12.9 H 1.6-8.6 10 ^3/uL Lymphocytes # (Auto) 3.9 0.4-5.4 10 ^3/uL Monocytes # (Auto) 0.8 0-1.3 10 ^3/uL Eosinophils # (Auto) 0.3 0-0.8 10 ^3/uL Basophils # (Auto) 0.2 0-0.2 10 ^3/uL Nucleated Red Blood Cells 0.1 % Sodium Level 142 136-145 mmol/L Potassium Level 4.0 3.5-5.1 mmol/L Chloride Level 104 98-107 mmol/L Carbon Dioxide Level 26 20-31 mmol/L Anion Gap 12 5-15 Blood Urea Nitrogen 15 9-23 mg/dL Creatinine 0.78 0.550-1.02 mg/dL Glomerular Filtration Rate Calc 92 >90 mL/min BUN/Creatinine Ratio 19.2 10.0-20.0 Serum Glucose 131 H 74-106 mg/dL Calcium Level 10.5 H 8.7-10.4 mg/dL Total Bilirubin 0.5 0.2-1.0 mg/dL Aspartate Amino Transferase (AST) 54 H 13-40 U/L Alanine Aminotransferase (ALT) 41 H 7-40 U/L Alkaline Phosphatase 156 H 46-116 U/L Total Protein 7.8 5.7-8.2 g/dL Albumin 4.8 3.2-4.8 g/dL Lipase 65 H 12-53 U/L Beta HCG, Quantitative 3.1 1.5-4.2 mIU/mL Assessment/Plan Assessment/Plan Assessment/plan Acute abdominal pain likely due to acute pancreatitis Acute pancreatitis Possible cholecystitis -gallbladder ultrasound revealed normal-appearing gallbladder, steatosis of the liver and possible pancreatitis -ordered CT scan of the abdomen and pelvis, which showed galbladder wall thickening, possible cholecystitis -Ordered HIDA scan -1 L of IV fluid was given in the ED -start IV fluids Lactate Ringer at 135 cc/hour -pain medication as needed -patient was placed NPO -Start pantoprazole 40 mg daily UTI -Start Ceftriaxone Acute transaminitis -AST 54, ALT 41 -monitor liver enzymes Type 2 diabetes mellitus -ordered hemoglobin A1c -blood glucose 131 -start mild sliding scale insulin GERD -start pantoprazole 40 mg IV daily New onset hypertension likely pain related -Control pain and assess BP afterwards, start meds if necessary -Single dose of hydralazine 10mg IV -Monitor BP Hx of lactose intolerance -Avoid dairy food Dyslipidemia -Start atorvastatin 40mg daily Goals of care discussed with the patient at bedside, FULL CODE Plan discussed with Dr. Parnell Plan discussed with: Patient My Orders Orders - INOCENCIO WORKMAN Procedure Category Date Status Time Admit ADMIT 04/04/24 Verified 22:21 Code Status CODE 04/04/24 Verified 22:21 Vital Signs [facility] 04/04/24 Verified 22:21 Review Orders With ARMAAN 04/04/24 Verified Adm. 22:21 Encourage Activity As [facility] 04/04/24 Verified Tolerate 22:21 Npo (Nothing By DIET 04/05/24 Verified Mouth) Diet Breakfast Acetaminophen Tablet [facility] 04/04/24 Verified (Tylenol Tablet) 22:30 Notify Md Of Changes [facility] 04/04/24 Verified From Base 22:21 Advance Directive [facility]MA[facility] 04/04/24 Verified 22:21 Urinalysis LAB 04/04/24 Verified 22:21 Lipid Panel LAB 04/04/24 Verified 22:21 Patient Condition ORDERS 04/04/24 Verified 22:21 Allergies ARMAAN 04/04/24 Verified 22:21 Hydromorphone PHA 04/04/24 Verified Injection (Dilaudid 22:30 Ondansetron Hcl PHA 04/04/24 Verified (Zofran) 22:30 Drug Screen LAB 04/04/24 Verified 22:21 Hemoglobin A1c LAB 04/04/24 Verified 22:21 NS PHA 04/04/24 Verified 22:30 Date of Service: Apr 04, 2024 Billing Provider: JACQUELYN PARNELL MD Common Visit Codes: [id number] INP/OBS CARE (HIGH) INOCENCIO WORKMAN RESIDENT Apr 04, 2024 22:41 JACQUELYN PARNELL MD Apr 07, 2024 11:45
[2024-04-04] MEDS ORDERED: DEXTROSE (50%) 50ML SYRG IV PRN (22:45)
[2024-04-04 22:52] LABS: Triglycerides 144 mg/dL (< 150)
[2024-04-04 22:54] LABS: HDL Cholesterol 57 mg/dL (40-59); LDL Cholesterol 164 mg/dL (< 100)
[2024-04-04 22:55] LABS: Cholesterol 236 mg/dL (< 200)
[2024-04-04] MEDS: hydrALAZINE HCL 20 MG/ML VL IV ONE (23:12)
[2024-04-04] MEDS: LACTATED RINGER'S 1,000 ML IV ONE (23:43)
[2024-04-04 23:46] LABS: Opiate Scree,Urine Pos (NEGATIVE)
[2024-04-04 23:53] LABS: Urine Bacteria FEW /hpf (None Seen); Urine Blood Negative /uL (Negative); Urine Budding Yeast OCCASIONAL /hpf (None Seen); Urine Clarity Clear (Clear); Urine Color Yellow (Yellow); Urine Protein, UAD TRACE (Negative); Urine Specific Gravity 1.025 (1.001-1.035); Urine Squamous Epithelial Cell FEW /hpf (<5); Urine Urobilinogen 2 mg/dL (Negative); Urine WBC <1 /hpf (0 - 5); Urine pH 6.5 (5.0-9.0)
[2024-04-05] VITALS (8 sets, daily range): BP systolic 108–142; BP diastolic 71–86; PULSE 66–80; RESP 14–22; TEMP 97.7–98.2; O2SAT 91–100
[2024-04-05 00:08] LABS: Amphetamine Screen, Urine Neg (NEGATIVE); Barbiturate Scree,Urine Neg (NEGATIVE); Benzodiazephine Screen, Urine Neg (NEGATIVE); Cannabinoid Screen, Urine Neg (NEGATIVE); Cocaine Screen, Urine Neg (NEGATIVE); Phencyclidine Screen, Urine Neg (NEGATIVE)
[2024-04-05] MEDS ORDERED: HYDROcodone-ACET 5/325MG TAB PO PRN (00:15)
--- NOTE | 2024-04-05 00:26 | DVH ---
Exam: CT CT AB PEL WO CON-NO ORAL OR IV History: Possible pancreatitis, R/O necrotizing pancreatitis Comparison Study: CT CT AB PEL WO CON-NO ORAL OR IV on DOS: 09/13/23 Technique: Multidetector spiral CT of the abdomen was performed from lung bases to pubic symphysis. Imaging was performed without IV contrast. Axial, coronal and sagittal multiplanar reformats were ob tained from the axial data set by the technologist. Radiation Dose : 1. Abdomen/Pelvis: CTDIvol 18 mGy, DLP 1034 mGy*cm. Findings: Evaluation of solid organs is limited due to lack of intravenous contrast use. Lung Bases: No acute or significant lung base finding. Normal heart size. No pleural or pericardial effusion. Liver: The liver is normal in size. No focal lesions. Gallbladder and Biliary Tree: Gallbladder wall thickening and questionable pericholecystic fluid, eddie picious for cholecystitis Spleen: Unremarkable Pancreas: The pancreas is grossly normal in appearance. Adrenal Glands: Unremarkable Kidneys: Kidneys are grossly normal without calculi or hydronephrosis. Bladder: Grossly unremarkable for degree of distention. Bowel: The stomach is grossly normal in appearance. Small bowel and colon are normal in caliber and d istribution. Normal appendix is visualized in the right lower quadrant without findings of appendici tis. Ascites: Absent Lymphadenopathy: No mesenteric, retroperitoneal or periportal lymphadenopathy. Abdominal Wall and Mesentery: Unremarkable. Vasculature: The visualized abdominal aorta is normal in size and caliber. Evaluation of abdominal a nd pelvic vessels is limited due to lack of intravenous contrast. Pelvic Organs: Unremarkable Musculoskeletal: No aggressive focal bony lesions, acute fractures or dislocation. IMPRESSION: 1. Gallbladder wall thickening with questionable pericholecystic fluid, suspicious for cholecystitis. Consider dedicated HIDA scan for further evaluation 2. Pancreas appears grossly unremarkable. Radiation optimization: All CT scans at this facility use at least one of these dose optimization yoana hniques: automated exposure control mA and/or kV adjustment per patient size (includes targeted exam s where dose is matched to clinical indication) or iterative reconstruction.
[2024-04-05] MEDS: cefTRIAXone 1GM/50ML D5W 50 ML IV SCH (00:30)
[2024-04-05] MEDS: ONDANSETRON HCL 4 MG/2 ML VIAL IV PRN (02:06)
[2024-04-05] MEDS: ACCU-CHEK COMFORT CURVE STRIP VI SCH (06:00)
[2024-04-05] MEDS: InsuLIN REG 1unit/0.01ml Soln (100units/ml) SC SCH (06:00)
[2024-04-05] MEDS: metroNIDAZOLE 500MG/100ML 100 ML IV ONE (07:15)
[2024-04-05] MEDS: PANTOPRAZOLE 40 MG/10 ML VIAL INJ IV SCH (08:10)
[2024-04-05] MEDS: ACETAMINOPHEN 325 MG TAB PO PRN (10:22)
[2024-04-05] MEDS: LACTATED RINGER'S 500 ML IV ONE (11:54)
[2024-04-05] MEDS: KETOROLAC TROMETH 30 MG/ML 1ML VIAL IV ONE ×2 (12:29→21:46)
[2024-04-05 12:32] LABS: INR 1.04 (0.9-1.15)
[2024-04-05] MEDS: metroNIDAZOLE 500MG/100ML 100 ML IV SCH (14:03)
--- NOTE | 2024-04-05 15:06 | DVHPNRES ---
Progress Note Date Seen: Apr 05, 2024 Resident Creating Document: JACK NICHOLAS RESIDENT Medical Necessity Reason Pt with a Central, PICC or Fol: No Subjective Review of Systems 63-year-old female patient with past medical history of type 2 obesity, type 2 diabetes, dyslipidemia, GERD, lactose intolerance, history of tubal ligation who presented to the emergency department with the acute abdominal pain that started 1 day ago characterized by sharp epigastric pain in the middle of the abdomen (epigastric) that radiates to the right side and goes to the back. Patient reports she has been using Ozempic for the past 2 months. Other associated symptoms were nausea and vomiting, that improved after Zofran. Patient was examined at bedside, he reports having throbbing headaches, she has history of migraines for which he was she was given 1 dose of Toradol. Patient is still NPO, CT scan and ultrasound showed possible acute cholecystitis, HIDA scan will be needed to confirm this diagnosis. Lipase levels were also elevated, for which acute pancreatitis can not be ruled out at this time. Patient was started on metronidazole and ceftriaxone for empiric coverage. Addition patient is still on lactated Ringer . Surgical consultation is pending. Objective vital signs Vital Sign Date Time Temp Pulse Resp B/P (MAP) Pulse Ox O2 Delivery O2 Flow Rate FiO2 04/05/24 13:55 Room Air* 0 21 04/05/24 12:34 97.9 74 20 124/71 (88) 100 97.9 Total Intake and Output 04/04/24 04/04/24 04/05/24 15:00 23:00 07:00 Intake Total 0 ml Balance 0 ml medications Current Medications Medications Dose Ordered Sig/Hannah Route Start Time Stop Time Status Last Admin Dose Admin Acetaminophen 650 mg Q6HP PRN PO 04/04/24 22:30 Ondansetron HCl 4 mg Q4HP PRN IV 04/04/24 22:30 04/05/24 10:36 4 MG Diagnostic Test (Pha) 1 strip ACHS 04/05/24 07:00 04/05/24 11:54 1 STRIP Insulin Human Regular ACHS SC 04/05/24 07:00 Dextrose 50 ml UD PRN IV 04/04/24 22:45 Acetaminophen/ Hydrocodone Bitart 1 tab Q4HPRN PRN PO 04/05/24 00:15 Ceftriaxone Sodium 50 ml @ 100 mls/hr DAILY@09 IV 04/05/24 00:30 04/05/24 10:11 100 MLS/HR Pantoprazole Sodium 40 mg DAILY IV 04/05/24 10:00 04/05/24 08:10 40 MG Metronidazole 100 ml @ 100 mls/hr Q8HR IV 04/05/24 14:00 04/05/24 14:03 100 MLS/HR Examination Examination General Appearance: Alert, Oriented X3, Cooperative, No acute distress Respiratory: Clear to auscultation, Normal air movement Cardiovascular: Regular rate, Normal S1, Normal S2 Abdominal: Right upper quadrant abdominal pain, epigastric pain that radiates to the back. Tender on palpation, no guarding, no rebound, Normal bowel sounds Extremities: No cyanosis, No edema, Normal pulses, No tenderness/swelling Skin: No rashes, No breakdown Neuro: Normal gait, Normal speech, Strength at 5/5 X4 ext, Normal tone, Sensation intact, Cranial nerves 3-12 NL, Reflexes 2+ Psych/Mental Status: Mental status NL, Mood NL laboratory and microbiology Laboratory Tests 04/04/24 19:42 Test 04/04/24 19:42 Range/Units Serum Glucose 131 H 74-106 mg/dL Problem List/Assessment/Plan Problem List/Assessment/Plan #Acute abdominal pain likely due to acute cholecystitis/ acute pancreatitis, likely due to medication induced (Ozempic) -admit to med surge -surgical consult -gallbladder ultrasound revealed normal-appearing gallbladder, steatosis of the liver and possible pancreatitis -ordered CT scan of the abdomen and pelvis, which showed galbladder wall thickening, possible cholecystitis -Ordered HIDA scan -IV fluids -pain medication as needed -patient was placed NPO -Start pantoprazole 40 mg daily #UTI -Start Ceftriaxone #Acute transaminitis -AST 54, ALT 41 -monitor liver enzymes #Type 2 diabetes mellitus -ordered hemoglobin A1c -blood glucose 131 -start mild sliding scale insulin #GERD -start pantoprazole 40 mg IV daily #New onset hypertension likely pain related -Control pain and assess BP afterwards, start meds if necessary -Single dose of hydralazine 10mg IV -Monitor BP #History of migraines -monitor #Hx of lactose intolerance -Avoid dairy food #Dyslipidemia, 10 year cardiovascular risk 3.7 % -Start atorvastatin 20 mg daily Case discussed with Dr. Onofre Goals of care discussed with the patient for 28 minutes Code status: Full code Plan discussed with: Patient, Spouse, Son My Orders My Orders Orders - JACK NICHOLAS Procedure Category Date Status Time Metronidazole PHA 04/05/24 In Process 500mg/100ml (Flagyl 14:00 Complete Blood Count LAB 04/05/24 Logged 11:13 Basic Metabolic Panel LAB 04/05/24 Logged 11:13 Lactated Ringer's PHA 04/05/24 In Process 11:30 Date of Service: Apr 05, 2024 Billing Provider: MARY JO LEWIS MD Common Visit Codes: [id number] INP/OBS CARE(HIGH) JACK NICHOLAS Apr 05, 2024 15:06 MARY JO LEWIS MD Apr 07, 2024 21:10
[2024-04-05] MEDS: ATORVASTATIN 20 MG TAB PO ONE (15:28)
[2024-04-05 16:14] LABS: Potassium 4.6 mmol/L (3.5-5.1); Sodium 143 mmol/L (136-145)
[2024-04-05 16:15] LABS: Anion Gap 6 (5-15); Calcium 9.3 mg/dL (8.7-10.4); Carbon Dioxide 27 mmol/L (20-31)
[2024-04-05 16:19] LABS: Chloride 110 mmol/L (98-107)
[2024-04-05 16:20] LABS: BUN/Creatinine Ratio 10.3 (10.0-20.0); Glucose 84 mg/dL (74-106)
[2024-04-05 16:26] LABS: Blood Urea Nitrogen 8 mg/dL (9-23)
[2024-04-05 16:33] LABS: Basophils # (auto) 0.1 10 ^3/uL (0-0.2); Basophils % (auto) 0.9 % (0.0-2.0); Eosinophils # (auto) 0.3 10 ^3/uL (0-0.8); Eosinophils % (auto) 3.4 % (0.0-7.0); Hematocrit 39.1 % (36.0-46.0); Lymphocytes # (auto) 4.1 10 ^3/uL (0.4-5.4); Lymphocytes % (auto) 40.8 % (10.0-50.0); Mean Corpuscular Hemoglobin 27.6 pg (28.0-32.0); Mean Corpuscular Hgb Conc. 33.2 g/dL (32.0-36.0); Mean Corpuscular Volume 83.3 fL (80.0-100.0); Monocytes # (auto) 0.5 10 ^3/uL (0-1.3); Monocytes % (auto) 4.8 % (0.0-12.0); Neutrophils % (auto) 50.1 % (37.0-80.0); Nucleated Red Blood Cells % 0.1 %; Platelet Count (auto) 308 10^3/uL (140-450); Red Cell Distribution Width 15.1 % (11.8-14.3); White Blood Cell 9.9 10^3/uL (4.4-10.8)
[2024-04-05] MEDS: PNEUMOCOCCAL VACC POLYS 25 MCG/0.5 ML VIAL IM ONE (18:00)
[2024-04-05] MEDS: INFLUENZA TRIVALENT 2024-2025 0.5 ML INJ IM ONE (18:00)
--- NOTE | 2024-04-05 18:23 | DVHINCON2 ---
Date of service: Apr 05, 2024 Family History: Diabetes mellitus G8 BROTHER, Onset:40's - 50 Allergies: Coded Allergies: NO KNOWN ALLERGIES (Unverified , 11/09/22) Home Meds Active Scripts Gabapentin (Gabapentin) 100 Mg Cap, 1 CAP PO TID, #60 CAP 2 Refills Start with one capsule at sleep. Increase to one capsule twice daily after 3 days. Then one capsule three times daily after one week if tolerable. Prov:CIRO FORDE PROJECT SCIENTIST 11/03/23 Meloxicam (Meloxicam) 7.5 Mg Tab, 1 TAB PO DAILY for 30 Days, #30 TAB 0 Refills Prov:EL WINTERS DISPATCH SPECIALIST 09/23/23 Cyclobenzaprine Hcl (Cyclobenzaprine Hcl) 5 Mg Tab, 1 TAB PO QHSP PRN for 30 Days, #30 TAB 0 Refills Prov:EL WINTERS DISPATCH SPECIALIST 09/23/23 Carisoprodol (Soma) 250 Mg Tab, 250 MG PO Q8HP PRN for 7 Days, #21 TAB Prov:JEAN BLAIR DISPATCH SPECIALIST 09/18/23 Pantoprazole Sodium Sesquihydr (Protonix) 40 Mg Tab, 40 MG PO DAILY for 30 Days, #30 TAB 1 Refill Prov:JEAN BLAIR DISPATCH SPECIALIST 09/18/23 Levofloxacin Hemihydrate (LEVAQUIN 500 MG) 500 Mg Tab, 500 MG PO DAILY for 7 Days, #7 TAB Prov:JEAN BLAIR DISPATCH SPECIALIST 09/18/23 Metronidazole (Flagyl) 500 Mg Tab, 500 MG PO TID for 7 Days, #21 TAB Prov:JEAN BLAIR DISPATCH SPECIALIST 09/18/23 Current Medications Current Medications Medications (Trade) Dose Ordered Sig/Hannah Route PRN Reason Start Time Stop Time Status Last Admin Acetaminophen (Tylenol Tablet) 650 mg Q6HP PRN PO PAIN SCALE 1-3 OR TEMP>100.4 04/04/24 22:30 Hydromorphone HCl (Dilaudid Injection) 0.5 mg Q4HP PRN IV SEVERE PAIN (7-10 PAIN SCALE) 04/04/24 22:30 04/05/24 00:14 DC Ondansetron HCl (Zofran) 4 mg Q4HP PRN IV NAUSEA / VOMITING 04/04/24 22:30 04/05/24 10:36 Diagnostic Test (Pha) (Accu-Chek Comfort Curve T) 1 strip ACHS 04/05/24 07:00 04/05/24 17:18 Insulin Human Regular (InsuLIN R) ACHS SC 04/05/24 07:00 Dextrose 50 ml UD PRN IV Blood Sugar LESS THAN 60 04/04/24 22:45 Acetaminophen/ Hydrocodone Bitart ([place] 5/325MG Tab) 1 tab Q4HPRN PRN PO MODERATE PAIN (4-6 PAIN SCALE) 04/05/24 00:15 Ceftriaxone Sodium 50 ml @ 100 mls/hr DAILY@09 IV 04/05/24 00:30 04/05/24 10:11 Pantoprazole Sodium (Protonix) 40 mg DAILY IV 04/05/24 10:00 04/05/24 08:10 Metronidazole 100 ml @ 100 mls/hr Q8HR IV 04/05/24 14:00 04/05/24 14:03 Atorvastatin Calcium (Lipitor) 20 mg DAILY PO 04/06/24 10:00 Vital Signs Vital Signs Date Time Temp Pulse Resp B/P (MAP) Pulse Ox O2 Delivery O2 Flow Rate FiO2 04/05/24 16:39 97.8 66 20 112/75 (87) 91 97.8 04/05/24 13:55 Room Air* 0 21 Labs/Diagnostic Data Labs Test 04/05/24 17:08 04/05/24 15:11 04/05/24 11:38 04/04/24 23:25 Range/Units POC Glucose 81 70-106 mg/dl White Blood Count 9.9 # 4.4-10.8 10^3/uL Red Blood Count 4.70 4.0-5.20 10^6/uL Hemoglobin 13.0 12.2-16.2 g/dL Hematocrit 39.1 36.0-46.0 % Mean Corpuscular Volume 83.3 80.0-100.0 fL Mean Corpuscular Hemoglobin 27.6 L 28.0-32.0 pg Mean Corpuscular Hemoglobin Concent 33.2 32.0-36.0 g/dL Red Cell Distribution Width 15.1 H 11.8-14.3 % Platelet Count 308 140-450 10^3/uL Mean Platelet Volume 7.6 6.9-10.8 fL Neutrophils (%) (Auto) 50.1 37.0-80.0 % Lymphocytes (%) (Auto) 40.8 10.0-50.0 % Monocytes (%) (Auto) 4.8 0.0-12.0 % Eosinophils (%) (Auto) 3.4 0.0-7.0 % Basophils (%) (Auto) 0.9 0.0-2.0 % Neutrophils # (Auto) 5.0 1.6-8.6 10 ^3/uL Lymphocytes # (Auto) 4.1 0.4-5.4 10 ^3/uL Monocytes # (Auto) 0.5 0-1.3 10 ^3/uL Eosinophils # (Auto) 0.3 0-0.8 10 ^3/uL Basophils # (Auto) 0.1 0-0.2 10 ^3/uL Nucleated Red Blood Cells 0.1 % Prothrombin Time 11.0 9.3-11.8 sec Prothrombin Time INR 1.04 0.9-1.15 Sodium Level 143 136-145 mmol/L Potassium Level 4.6 3.5-5.1 mmol/L Chloride Level 110 H 98-107 mmol/L Carbon Dioxide Level 27 20-31 mmol/L Anion Gap 6 5-15 Blood Urea Nitrogen 8 L 9-23 mg/dL Creatinine 0.78 0.550-1.02 mg/dL Glomerular Filtration Rate Calc 92 >90 mL/min BUN/Creatinine Ratio 10.3 10.0-20.0 Serum Glucose 84 74-106 mg/dL Calcium Level 9.3 8.7-10.4 mg/dL Urine Color Yellow Yellow Urine Clarity Clear Clear Urine pH 6.5 5.0-9.0 Urine Specific [place] 1.025 1.001-1.035 Urine Protein Trace H Negative Urine Ketones Trace Negative Urine Blood Negative Negative /uL Urine Nitrite 2+ H Negative Urine Bilirubin Negative Negative Urine Urobilinogen 2 H Negative mg/dL Urine Leukocyte Esterase Negative Negative /uL Urine RBC 1 0 - 4 /hpf Urine WBC <1 0 - 5 /hpf Urine Squamous Epithelial Cells Few <5 /hpf Urine Bacteria Few H None Seen /hpf Urine Yeast (Budding) Occasional None Seen /hpf Urine Glucose Normal Normal mg/dL Urine Opiates Screen Pos NEGATIVE Urine Fentanyl Screen Neg NEGATIVE Urine Barbiturates Screen Neg NEGATIVE Urine Phencyclidine Screen Neg NEGATIVE Urine Amphetamines Screen Neg NEGATIVE Urine Benzodiazepines Screen Neg NEGATIVE Urine Cocaine Screen Neg NEGATIVE Urine Cannabinoids Screen Neg NEGATIVE Test 04/04/24 19:42 Range/Units Hemoglobin A1c 5.8 H <5.7 % A1C Total Bilirubin 0.5 0.2-1.0 mg/dL Aspartate Amino Transferase (AST) 54 H 13-40 U/L Alanine Aminotransferase (ALT) 41 H 7-40 U/L Alkaline Phosphatase 156 H 46-116 U/L Total Protein 7.8 5.7-8.2 g/dL Albumin 4.8 3.2-4.8 g/dL Triglycerides Level 144 < 150 mg/dL Cholesterol Level 236 H < 200 mg/dL LDL Cholesterol 164 H < 100 mg/dL HDL Cholesterol 57 40-59 mg/dL Lipase 65 H 12-53 U/L Beta HCG, Quantitative 3.1 1.5-4.2 mIU/mL Assessment 999751 AC PANCREATITIS US NEG FOR GALLSTONES NO INDICATION FOR URGENT SURGERY CLOSE OBSERVATION REPEAT LABS AM KEEP NPO Plan discussed with: Patient SANDRA MORALES MD Apr 05, 2024 18:23
--- NOTE | 2024-04-05 19:02 | DVHINCON2 ---
DATE OF CONSULTATION: 04/05/2024 HISTORY OF PRESENT ILLNESS: This patient is 53-year-old, coming in with abdominal pain, now feeling much better. She had epigastric pain yesterday. There was [id number], but now the pain is resolved. Yesterday, she had nausea as well, but no vomiting today. No fever or chills. No diarrhea. No hematemesis or melena. No bleeding per rectum. PAST MEDICAL HISTORY: Diabetes. PAST SURGICAL HISTORY: * Tubal ligation. * . PHYSICAL EXAMINATION: VITAL SIGNS: On examination, afebrile, stable signs. HEENT: With no evidence of pallor, cyanosis, or jaundice. NECK: Supple, nontender with no thyromegaly or lymphadenopathy. CHEST AND LUNGS: Clear. HEART: Within normal limits. ABDOMEN: Soft, nontender. No rebound. EXTREMITIES: Unremarkable. NEUROLOGIC: Intact. CLINICAL IMPRESSION: Abdominal pain has resolved, etiology not clear. The CT scan is suggesting possibility of cholecystitis, however, the gallbladder ultrasound is negative for gallstones; and she does have elevated amylase and lipase levels suggesting pancreatitis that also could be resolving. PLAN: The plan will be to keep her n.p.o. Repeat her labs tomorrow; and at this point, she does not have a surgical condition that would require an urgent surgical intervention. Please manage conservatively. MD RACHELL Ng/PARAMJIT TID: [id number] RECEIPT: [id number] cc: INOCENCIO DUMONT
[2024-04-06 05:00] VITALS: BP 133/70; PULSE 60; RESP 20; TEMP 98; O2SAT 96
[2024-04-06 09:00] VITALS: BP 127/72; PULSE 65; RESP 16; TEMP 98.3; O2SAT 97
[2024-04-06] MEDS: ATORVASTATIN 20 MG TAB PO SCH (09:12)
--- NOTE | 2024-04-06 10:16 | DVHPN2 ---
Progress Note Date Seen: Apr 06, 2024 Medical Necessity Reason Pt with a Central, PICC or Fol: No Objective vital signs Vital Sign Date Time Temp Pulse Resp B/P (MAP) Pulse Ox O2 Delivery O2 Flow Rate FiO2 04/06/24 09:00 98.3 65 16 127/72 (90) 97 98.3 04/05/24 20:00 Room Air* 0 21 Total Intake and Output 04/05/24 04/05/24 04/06/24 15:00 23:00 07:00 Intake Total 150 ml 100 ml 0 ml Output Total 800 ml Balance 150 ml 100 ml -800 ml medications Current Medications Medications Dose Ordered Sig/Hannah Route Start Time Stop Time Status Last Admin Dose Admin Acetaminophen 650 mg Q6HP PRN PO 04/04/24 22:30 Ondansetron HCl 4 mg Q4HP PRN IV 04/04/24 22:30 04/05/24 10:36 4 MG Diagnostic Test (Pha) 1 strip ACHS 04/05/24 07:00 04/06/24 06:16 1 STRIP Insulin Human Regular ACHS SC 04/05/24 07:00 Dextrose 50 ml UD PRN IV 04/04/24 22:45 Acetaminophen/ Hydrocodone Bitart 1 tab Q4HPRN PRN PO 04/05/24 00:15 Ceftriaxone Sodium 50 ml @ 100 mls/hr DAILY@09 IV 04/05/24 00:30 04/06/24 09:12 100 MLS/HR Pantoprazole Sodium 40 mg DAILY IV 04/05/24 10:00 04/06/24 09:12 40 MG Metronidazole 100 ml @ 100 mls/hr Q8HR IV 04/05/24 14:00 04/06/24 06:16 100 MLS/HR Atorvastatin Calcium 20 mg DAILY PO 04/06/24 10:00 04/06/24 09:12 20 MG laboratory and microbiology Test 04/06/24 09:15 Range/Units Serum Glucose Pending Problem List/Assessment/Plan Problem List/Assessment/Plan AFEBRILE VSS ABD SOFT NON TENDER REPEAT LABS PENDING Plan discussed with: Patient SANDRA MORALES MD Apr 06, 2024 10:16
[2024-04-06 10:42] LABS: Basophils # (auto) 0.1 10 ^3/uL (0-0.2); Basophils % (auto) 0.6 % (0.0-2.0); Eosinophils # (auto) 0.3 10 ^3/uL (0-0.8); Eosinophils % (auto) 2.9 % (0.0-7.0); Hematocrit 40.9 % (36.0-46.0); Hemoglobin 13.4 g/dL (12.2-16.2); Lymphocytes # (auto) 4.3 10 ^3/uL (0.4-5.4); Lymphocytes % (auto) 39.3 % (10.0-50.0); Mean Corpuscular Hemoglobin 27.3 pg (28.0-32.0); Mean Corpuscular Hgb Conc. 32.8 g/dL (32.0-36.0); Mean Corpuscular Volume 83.1 fL (80.0-100.0); Monocytes # (auto) 0.5 10 ^3/uL (0-1.3); Monocytes % (auto) 4.7 % (0.0-12.0); Neutrophils # (auto) 5.8 10 ^3/uL (1.6-8.6); Neutrophils % (auto) 52.5 % (37.0-80.0); Nucleated Red Blood Cells % 0.1 %; Platelet Count (auto) 368 10^3/uL (140-450); Red Blood Cells 4.92 10^6/uL (4.0-5.20); Red Cell Distribution Width 15.1 % (11.8-14.3); White Blood Cell 11.1 10^3/uL (4.4-10.8)
[2024-04-06 11:07] LABS: Sodium 141 mmol/L (136-145)
[2024-04-06 11:08] LABS: Anion Gap 7 (5-15); Carbon Dioxide 26 mmol/L (20-31)
[2024-04-06 11:09] LABS: Calcium 9.6 mg/dL (8.7-10.4)
[2024-04-06 11:12] LABS: Chloride 108 mmol/L (98-107)
[2024-04-06 11:13] LABS: BUN/Creatinine Ratio 13.5 (10.0-20.0); Blood Urea Nitrogen 10 mg/dL (9-23); Glucose 84 mg/dL (74-106)
[2024-04-06 11:14] LABS: Lipase 49 U/L (12-53)
[2024-04-06 11:15] LABS: Amylase 70 U/L (30-118)
[2024-04-06 12:39] VITALS: BP 121/78; PULSE 80; RESP 16; TEMP 97.6; O2SAT 98
[2024-04-06 15:25] LABS: Bilirubin, Total 0.5 mg/dL (0.2-1.0)
[2024-04-06 15:26] LABS: Total Protein 6.6 g/dL (5.7-8.2)
[2024-04-06 15:47] VITALS: BP 109/68; PULSE 80; RESP 14; TEMP 97.6; O2SAT 96
[2024-04-06 15:56] LABS: Bilirubin, Direct 0.1 mg/dL (<0.3)
--- NOTE | 2024-04-06 16:29 | DVHDSRES ---
Discharge Summary Date of Admission Resident Creating Document: SOFIA TAPIA RESIDENT Apr 04, 2024 at 22:21 Date of Discharge: Apr 06, 2024 Labs/Diagnostic Data: Laboratory Results Test 04/06/24 11:31 04/06/24 09:15 04/05/24 11:38 04/04/24 23:25 POC Glucose 81 mg/dl (70-106) White Blood Count 11.1 10^3/uL (4.4-10.8) Red Blood Count 4.92 10^6/uL (4.0-5.20) Hemoglobin 13.4 g/dL (12.2-16.2) Hematocrit 40.9 % (36.0-46.0) Mean Corpuscular Volume 83.1 fL (80.0-100.0) Mean Corpuscular Hemoglobin 27.3 pg (28.0-32.0) Mean Corpuscular Hemoglobin Concent 32.8 g/dL (32.0-36.0) Red Cell Distribution Width 15.1 % (11.8-14.3) Platelet Count 368 10^3/uL (140-450) Mean Platelet Volume 7.6 fL (6.9-10.8) Neutrophils (%) (Auto) 52.5 % (37.0-80.0) Lymphocytes (%) (Auto) 39.3 % (10.0-50.0) Monocytes (%) (Auto) 4.7 % (0.0-12.0) Eosinophils (%) (Auto) 2.9 % (0.0-7.0) Basophils (%) (Auto) 0.6 % (0.0-2.0) Neutrophils # (Auto) 5.8 10 ^3/uL (1.6-8.6) Lymphocytes # (Auto) 4.3 10 ^3/uL (0.4-5.4) Monocytes # (Auto) 0.5 10 ^3/uL (0-1.3) Eosinophils # (Auto) 0.3 10 ^3/uL (0-0.8) Basophils # (Auto) 0.1 10 ^3/uL (0-0.2) Nucleated Red Blood Cells 0.1 % Sodium Level 141 mmol/L (136-145) Potassium Level 4.0 mmol/L (3.5-5.1) Chloride Level 108 mmol/L (98-107) Carbon Dioxide Level 26 mmol/L (20-31) Anion Gap 7 (5-15) Blood Urea Nitrogen 10 mg/dL (9-23) Creatinine 0.74 mg/dL (0.550-1.02) Glomerular Filtration Rate Calc 98 mL/min (>90) BUN/Creatinine Ratio 13.5 (10.0-20.0) Serum Glucose 84 mg/dL (74-106) Calcium Level 9.6 mg/dL (8.7-10.4) Total Bilirubin 0.5 mg/dL (0.2-1.0) Direct Bilirubin 0.1 mg/dL (<0.3) Aspartate Amino Transferase (AST) 45 U/L (13-40) Alanine Aminotransferase (ALT) 95 U/L (7-40) Alkaline Phosphatase 145 U/L (46-116) Total Protein 6.6 g/dL (5.7-8.2) Albumin 4.0 g/dL (3.2-4.8) Amylase Level 70 U/L (30-118) Lipase 49 U/L (12-53) Prothrombin Time 11.0 sec (9.3-11.8) Prothrombin Time INR 1.04 (0.9-1.15) Urine Color Yellow (Yellow) Urine Clarity Clear (Clear) Urine pH 6.5 (5.0-9.0) Urine Specific [place] 1.025 (1.001-1.035) Urine Protein Trace (Negative) Urine Ketones Trace (Negative) Urine Blood Negative /uL (Negative) Urine Nitrite 2+ (Negative) Urine Bilirubin Negative (Negative) Urine Urobilinogen 2 mg/dL (Negative) Urine Leukocyte Esterase Negative /uL (Negative) Urine RBC 1 /hpf (0 - 4) Urine WBC <1 /hpf (0 - 5) Urine Squamous Epithelial Cells Few /hpf (<5) Urine Bacteria Few /hpf (None Seen) Urine Yeast (Budding) Occasional /hpf (None Urine Glucose Normal mg/dL (Normal) Urine Opiates Screen Pos (NEGATIVE) Urine Fentanyl Screen Neg (NEGATIVE) Urine Barbiturates Screen Neg (NEGATIVE) Urine Phencyclidine Screen Neg (NEGATIVE) Urine Amphetamines Screen Neg (NEGATIVE) Urine Benzodiazepines Screen Neg (NEGATIVE) Urine Cocaine Screen Neg (NEGATIVE) Urine Cannabinoids Screen Neg (NEGATIVE) Test 04/04/24 19:42 Hemoglobin A1c 5.8 % A1C (<5.7) Triglycerides Level 144 mg/dL (< 150) Cholesterol Level 236 mg/dL (< 200) LDL Cholesterol 164 mg/dL (< 100) HDL Cholesterol 57 mg/dL (40-59) Beta HCG, Quantitative 3.1 mIU/mL (1.5-4.2) Other Laboratory Tests 04/06/24 09:15 Brief Hx & Hospital Course: 53-year-old female patient with past medical history of type 2 obesity, type 2 diabetes, dyslipidemia, GERD, lactose intolerance, history of tubal ligation who presented to the emergency department with the acute abdominal pain that started 1 day ago characterized by sharp epigastric pain in the middle of the abdomen (epigastric) that radiates to the right side and goes to the back. Patient reports she has been using Ozempic for the past 2 months. Other associated symptoms were nausea and vomiting, that improved after Zofran. Patient was examined at bedside, he reports having throbbing headaches, she has history of migraines for which he was she was given 1 dose of Toradol. Patient is still NPO, CT scan and ultrasound showed possible acute cholecystitis, HIDA scan will be needed to confirm this diagnosis. Lipase levels were also elevated, for which acute pancreatitis can not be ruled out at this time. Patient was started on metronidazole and ceftriaxone for empiric coverage. CT Abd shows: Gallbladder wall thickening with questionable pericholecystic fluid, suspicious for cholecystitis. Surgery consultation By Dr Nicholas appreciated. Recommended No emergent surgery at this time. Pancreatirtis was treated with I/V fluid and Pain management. Today patient denies any abd pain, N/V and tolerating food well. Patient is going to discharge home and advised patient to follow up with PCP in 1-2 weeks. Condition at Discharge: Stable Final Diagnosis/Problems List Acute abdominal pain likely due to acute cholecystitis/ acute Discharge Disposition: Home SNF Discharge Will this Physician continue t: No Discharge Instruct/Medications Diet: Consistent carbohydrate Activity: No Restrictions, As Tolerated Follow Up/Referral: Follow up with PCP in 1-2 weeks Medications: Continue home medications Discharge Statement: "Patient was advised to return to the ER or call 911 if any headaches, dizziness, shortness of breath, chest pain, abdominal pain, bleeding, fevers, or worsening of medical condition. Patient was counseled about treatment plan, medications, possible side effects, patientverbalized understanding. All questions were answered to the best of my ability. This discharge took greater then 30 minutes in planning, reviewing documentation, counseling the patient, and discussing with other team members." ASSESSMENT ASSESSMENT Assessment Acute abdominal pain likely due to acute cholecystitis/ acute Date of Service: Apr 06, 2024 Billing Provider: MARY JO LEWIS MD Common Visit Codes: [id number] DISCH DAY >30min SOFIA TAPIA RESIDENT Apr 06, 2024 16:29 MARY JO LEWIS MD Apr 10, 2024 16:28
[2024-04-06] MEDS ORDERED: PNEUMOCOCCAL VACC POLYS 25 MCG/0.5 ML VIAL IM ONE (16:30)
[2024-04-06] MEDS ORDERED: INFLUENZA TRIVALENT 2024-2025 0.5 ML INJ IM ONE (16:30)
[2024-04-06 16:50] VITALS: BP 129/84; PULSE 71; RESP 18; TEMP 97.5; O2SAT 98
== END 2024-04-06 18:00 | disposition home or self-care (01) ==
LOC: EDUNIT# 18:33 → EDBD 18:33 → ER 18:33 → OVERFLOW 22:21 → EAST 04-05 01:12 → WEST WING 04-05 03:05
PROVIDERS: ADMIT Student in an Organized Health Care Education/Training Program; ATTEND Internal Medicine
DX: K81.0 Acute cholecystitis (principal); K85.90 Acute pancreatitis without necrosis or infection, unspecified; E11.9 Type 2 diabetes mellitus without complications; K21.9 Gastro-esophageal reflux disease without esophagitis; N39.0 Urinary tract infection, site not specified; E78.5 Hyperlipidemia, unspecified; Z98.51 Tubal ligation status; Z83.3 Family history of diabetes mellitus; Z79.899 Other long term (current) drug therapy
CPT/HCPCS: 36415; 74176; 76705; 80048; 80053; 80061; 80076; 80307; 81001; 82150; 82962; 83036; 83690; 84702; 85025; 85610; 90656; 99291; G0378; J1885; J2405; J2470; J3490

== ENCOUNTER 2024-04-09 08:19 | Inpatient (IN) | payer MEDICAID ==
[~2024-04-09] VITALS: Ht 154.9 cm; Wt 90.3 kg
--- NOTE | 2024-04-09 08:46 | ED.PDOC ---
GI ASSESSMENT HPI Comments 53 year old female presents to the ED with chief complaint of abdominal pain. Patient reports that she was admitted on 04/04/24 for the same epigastric abdominal pain and was diagnosed with pancreatitis, however, upon reviewing the chart patient was actually diagnosed with cholecystitis. Patient relays that she was given IV fluids and pain medication, feeling better to go home at the time, however, her pain started again this morning with associated nausea and diarrhea. Patient states her pain is a 10/10 and radiates to her back. Patient denies any vomiting, fever, chills, chest pain, dizziness, headache, or dysuria. Chief Complaint: Abdominal Pain Time Seen by MD: 08:41 Primary Care Provider: LUIS Reviewed Notes: Nurses Notes, Medications, Allergies Allergies: Coded Allergies: NO KNOWN ALLERGIES (Unverified , 11/09/22) Home Meds Active Scripts Gabapentin (Gabapentin) 100 Mg Cap, 1 CAP PO TID, #60 CAP 2 Refills Start with one capsule at sleep. Increase to one capsule twice daily after 3 days. Then one capsule three times daily after one week if tolerable. Prov:CIRO FORDE BUTCHERETTE 11/03/23 Meloxicam (Meloxicam) 7.5 Mg Tab, 1 TAB PO DAILY for 30 Days, #30 TAB 0 Refills Prov:EL WINTERS EXPERIMENTAL ROCKET SLED MECHANIC 09/23/23 Cyclobenzaprine Hcl (Cyclobenzaprine Hcl) 5 Mg Tab, 1 TAB PO QHSP PRN for 30 Days, #30 TAB 0 Refills Prov:EL WINTERS EXPERIMENTAL ROCKET SLED MECHANIC 09/23/23 Carisoprodol (Soma) 250 Mg Tab, 250 MG PO Q8HP PRN for 7 Days, #21 TAB Prov:JEAN BLAIR EXPERIMENTAL ROCKET SLED MECHANIC 09/18/23 Pantoprazole Sodium Sesquihydr (Protonix) 40 Mg Tab, 40 MG PO DAILY for 30 Days, #30 TAB 1 Refill Prov:JEAN BLAIR EXPERIMENTAL ROCKET SLED MECHANIC 09/18/23 Levofloxacin Hemihydrate (LEVAQUIN 500 MG) 500 Mg Tab, 500 MG PO DAILY for 7 Days, #7 TAB Prov:JEAN BLAIR EXPERIMENTAL ROCKET SLED MECHANIC 09/18/23 Metronidazole (Flagyl) 500 Mg Tab, 500 MG PO TID for 7 Days, #21 TAB Prov:JEAN BLAIR EXPERIMENTAL ROCKET SLED MECHANIC 09/18/23 Information Source: Patient Mode of Arrival: Ambulatory Timing: Days Duration: Since onset Prehospital treatment: None Quality: Sharp Vomitus: None Stool: Watery Severity: Moderate Recent: None Pain Location: Epigastric Modifying Factors: Nothing Associated sign and symptoms: Nausea, Diarrhea, Abdominal Pain Past Medical History PAST MEDICAL HISTORY: DM Past Medical History (Other): Cholecystitis Surgical History: Tubal Ligation SOFTWARE ENGINEER KERNEL History: No Pertinent SOFTWARE ENGINEER KERNEL History Family History Family History: Reviewed,noncontributory to illness, Unknown Social History Smoker: Non-Smoker Alcohol: Denies ETOH Use Drugs: Denies Drug Use Lives In: Home Constitutional: denies: chills, diaphoresis, fatigue, fever, malaise, sweats, weakness, others EENTM: denies: blurred vision, double vision, ear bleeding, ear discharge, ear drainage, ear pain, ear ringing, eye pain, eye redness, hearing loss, mouth pain, mouth swelling, nasal discharge, nose bleeding, nose congestion, nose pain, photophobia, tearing, throat pain, throat swelling, voice changes, others Respiratory: denies: cough, hemoptysis, orthopnea, SOB at rest, shortness of breath, SOB with excertion, stridor, wheezing, others Cardiovascular: denies: chest pain, dizzy spells, diaphoresis, Dyspnea on exertion, edema, irregular heart beat, left arm pain, lightheadedness, palpitations, PND, syncope, others Gastrointestinal: reports: abdominal pain, diarrhea, nausea; denies: abdomen distended, blood streaked bowels, constipated, dysphagia, difficulty swallowing, hematemesis, melena, poor appetite, poor fluid intake, rectal bleeding, rectal pain, vomiting, others Genitourinary: denies: abnormal vagina bleeding, burning, dyspareunia, dysuria, flank pain, frequency, hematuria, incontinence, pain, , vagina discharge, urgency, others Neurological: denies: dizziness, fainting, headache, left sided numbness, left sided weakness, numbness, paresthesia, pre-existing deficit, right sided numbness, right sided weakness, seizure, speech problems, tingling, tremors, weakness, others Musculoskeletal: denies: back pain, gout, joint pain, joint swelling, muscle pain, muscle stiffness, neck pain, others Integumetry: denies: bruises, change in color, change in hair/nails, dryness, laceration, lesions, lumps, rash, wounds, others Allergic/Immunocompromised: denies: Difficulty Healing, Frequent Infections, Hives, Itching, others Hematologic/Lymphatic: denies: anemia, blood clots, easy bleeding, easy bruising, swollen glands, others Endocrine: denies: excessive hunger, excessive sweating, excessive thirst, excessive urination, flushing, intolerance to cold, intolerance to heat, unexplained weight gain, unexplained weight loss, others Psychiatric: denies: anxiety, bipolar disorder, depression, hopeless, panic disorder, schizophrenia, sleepless, suicidal, others All Other Systems: Reviewed and Negative Physical Exam General Appearance: Moderate Distress, Normal HEENT: Normal ENT Inspection, PERRL/EOMI Neck: Full Range of Motion, Non-Tender, Normal, Normal Inspection Respiratory: Chest Non-Tender, Lungs Clear, No Accessory Muscle Use, No Respiratory Distress, Normal Breath Sounds Cardiovascular: No Edema, No JVD, No Murmur, No Gallop, Normal Peripheral Pulses, Regular Rate/Rhythm Breast Exam: Deferred Gastrointestinal: Diffuse, No Organomegaly, No Pulsatile Mass, Normal Bowel Sounds, Soft Genitalia: Deferred Pelvic: Deferred Rectal: Deferred Extremities: No calf tenderness, Normal capillary refill, Normal inspection, Normal range of motion, Non-tender, No pedal edema Musculoskeletal : Apperance: Normal Neurologic: Alert, shingle sawyer II-XII nml as Tested, No Motor Deficits, Normal Affect, Normal Mood, No Sensory Deficits Cerebellar Function: Normal Reflexes: Normal Skin: Dry, Normal Color, Warm Peripheral Pulses: 3+ Radial (R), 3+ Radial (L) Lymphatic: No Adenopathy Was a procedure done? Was a procedure done?: No GI differential Dx Differential Diagnosis: Cholecystitis, Constipation, Diverticular disease, Esophagitis, Gastritis/PUD, Gastroenteritis X-Ray, Labs, Meds, VS Vital Signs Date Time Temp Pulse Resp B/P (MAP) Pulse Ox O2 Delivery O2 Flow Rate FiO2 04/09/24 08:28 97.7 83 20 166/83 (110) 100 Patient alert. Complaining of abdominal pain. Vitals stable. Answering all questions. Abdomen is soft. Unable to get a good physical examination. Reviewed her previous visit. She does have gallbladder disease. Surgeon did see the patient and recommended conservative treatment. Patient continues to have pain. She will need surgery for her gallbladder. HIDA scan. Establish intravenous access. Was given fluids. Was given morphine. Was given Zofran. Explained to the patient. Continue cardiac monitoring. Time of 1ST Reevaluation: 09:41 Reevaluation 1ST: Unchanged Patient Education/Counseling: Diagnosis, Treatment Family Education/Counseling: No Family Present Additional Information I reviewed the following notes from patient's past medical encounters: Admission on 04/04/24 for cholecystitis The following tests were ordered, and results were reviewed by me: BMP, UA, Lipase, CBC Additional Information was gathered from interviewing the following independent historians: None I reviewed and agreed with the following test results read by other providers: None I discussed treatment and results with medical personnel. Departure 1 Departure Time of Disposition: 08:49 Impression: Primary Impression: Acute cholecystitis Additional Impression: Uncontrolled diabetes mellitus Qualified Codes: E13.65 - Other specified diabetes mellitus with hy perglycemia Disposition: ADMITTED INPATIENT Admit to: Med Surg Condition: Guarded Critical Care Note Critical Care Time?: Yes (45 min-critical care time only) Stability Stability form required: No Heart Score Heart Score: Heart Score Response (Comments) Value History N/A 0 EKG N/A 0 Age N/A 0 Risk Factors N/A 0 Troponin N/A 0 Total 0 I personally scribed for UGO STERLING MD ([email or web address]) on 04/09/24 at 08:46. Electronically submitted by Allen Tello ([email or web address]). UGO STERLING MD Apr 09, 2024 08:46
[2024-04-09] MEDS: SODIUM CHLORIDE 0.9% 1,000 ML IVB ONE (09:34)
[2024-04-09] MEDS: ONDANSETRON HCL 4 MG/2 ML VIAL IV ONE (09:49)
[2024-04-09] MEDS: MORPHINE SULFATE 4 MG/ML SYR/VIAL IV ONE (09:50)
[2024-04-09] MEDS ORDERED: ACETAMINOPHEN 325 MG TAB PO PRN (10:15)
[2024-04-09] MEDS ORDERED: MORPHINE SULFATE INJ 2 MG/ml SYRG IV PRN (10:15)
[2024-04-09] MEDS ORDERED: HYDROcodone-ACET 5/325MG TAB PO PRN (10:15)
[2024-04-09] MEDS ORDERED: ONDANSETRON HCL 4 MG/2 ML VIAL IV PRN (10:15)
[2024-04-09 10:24] LABS: Basophils # (auto) 0.1 10 ^3/uL (0-0.2); Basophils % (auto) 0.9 % (0.0-2.0); Eosinophils # (auto) 0.1 10 ^3/uL (0-0.8); Eosinophils % (auto) 0.7 % (0.0-7.0); Hematocrit 40.3 % (36.0-46.0); Hemoglobin 13.6 g/dL (12.2-16.2); Lymphocytes # (auto) 1.7 10 ^3/uL (0.4-5.4); Lymphocytes % (auto) 16.7 % (10.0-50.0); Mean Corpuscular Hemoglobin 27.7 pg (28.0-32.0); Mean Corpuscular Hgb Conc. 33.7 g/dL (32.0-36.0); Mean Corpuscular Volume 82.1 fL (80.0-100.0); Monocytes # (auto) 0.4 10 ^3/uL (0-1.3); Monocytes % (auto) 3.9 % (0.0-12.0); Neutrophils # (auto) 7.9 10 ^3/uL (1.6-8.6); Neutrophils % (auto) 77.8 % (37.0-80.0); Platelet Count (auto) 335 10^3/uL (140-450); Red Blood Cells 4.91 10^6/uL (4.0-5.20); Red Cell Distribution Width 14.7 % (11.8-14.3); White Blood Cell 10.1 10^3/uL (4.4-10.8)
[2024-04-09 10:37] LABS: Potassium 3.6 mmol/L (3.5-5.1); Sodium 139 mmol/L (136-145)
[2024-04-09 10:38] LABS: Anion Gap 9 (5-15); Calcium 9.8 mg/dL (8.7-10.4); Carbon Dioxide 23 mmol/L (20-31)
[2024-04-09 10:42] LABS: Urine Bacteria None Seen /hpf (None Seen)
[2024-04-09 10:43] LABS: BUN/Creatinine Ratio 14.5 (10.0-20.0); Blood Urea Nitrogen 12 mg/dL (9-23)
[2024-04-09 10:44] LABS: Chloride 107 mmol/L (98-107); Glucose 131 mg/dL (74-106)
--- NOTE | 2024-04-09 10:44 | DVHHP2 ---
History of Present Illness Reason for Visit: Abdominal pain History of Present Illness Nhung Sands is a 53-year-old female with past medical history of hyperlipidemia, diabetes, GERD, lactose intolerance, cholecystitis, tubal ligation, and left carpal tunnel surgery who presents to the ED with abdominal pain, nausea, and diarrhea x1 day. Patient states that she was discharged Sunday from [facility] with the same symptoms. Patient reports that yesterday she was in [facility] and had a salad with avocado dressing and immediately developed abdominal pain. She currently rates her pain a 4/10 pressure-like and constant. Patient also reports that she is not taking any medications for the last several weeks. Patient denies any fever, chills, recent sick contacts, vomiting, chest pain, shortness of breath, lightheadedness, and dizziness. Cardiovascular: hyperipidemia GI: GERD Endocrine: Diabetes Past Medical History Lactulose intolerance Cholecystitis Past Surgical History: Other (Left carpal tunnel surgery), Tubal Ligation Family History: None Smoke: No ALCOHOL: none Drugs: None Lives: with Family Domestic Violence: Neg Review of Systems Constitutional: No: Fever, Chills, Sweats, Weakness, Malaise, Other Eyes: No: Pain, Vision change, Conjunctivae inflammation, Eyelid inflammation, Other, Redness ENT: No: Ear pain, Ear discharge, Nose pain, Nose discharge, Nose congestion, Mouth pain, Mouth swelling, Throat pain, Throat swelling, Other Respiratory: No: Cough, Dry, Shortness of breath, SOB with excertion, Wheezing, Hemoptysis, Pleuritic Pain, Sputum, Wheezing, Other Cardiovascular: No: Chest Pain, Palpitations, Orthopnea, Paroxysmal Noc. Dyspnea, Edema, Lt Headedness, Other Gastrointestinal: Nausea, Abdominal Pain, Diarrhea; No: Constipation, Melena, Hematochezia, Other Genitourinary: No Dysuria, No Frequency, No Incontinence, No Hematuria, No Retention, No Other Musculoskeletal: No: other, neck pain, shoulder pain, arm pain, back pain, hand pain, leg pain, foot pain Skin: No: Rash, Lesions, Jaundice, Bruising, Other Neurological: No: Weakness, Numbness, Incoordination, Change in speech, Confusion, Seizures, Other Allergies: Coded Allergies: NO KNOWN ALLERGIES (Unverified , 11/09/22) Medications Current Medications Medications Dose Ordered Sig/Hannah Route Start Time Stop Time Status Last Admin Dose Admin Piperacillin Sod/ Tazobactam Sod 100 ml @ 25 mls/hr Q8HR IV 04/09/24 14:00 UNV Sodium Chloride 1,000 ml @ 60 mls/hr [id number] IV 04/09/24 10:15 UNV Acetaminophen/ Hydrocodone Bitart 1 tab Q4HP PRN PO 04/09/24 10:15 UNV Ondansetron HCl 4 mg Q4HP PRN IV 04/09/24 10:15 UNV Acetaminophen 650 mg Q6HP PRN PO 04/09/24 10:15 UNV Morphine Sulfate 2 mg Q4HPRN PRN IV 04/09/24 10:15 UNV Pantoprazole Sodium 40 mg DAILY IV 04/10/24 10:00 UNV Exam Vital Signs Vital Signs Date Time Temp Pulse Resp B/P (MAP) Pulse Ox O2 Delivery O2 Flow Rate FiO2 04/09/24 09:50 70 16 161/81 04/09/24 09:41 99 Room Air 04/09/24 09:41 98.0 98.0 General Appearance: Alert, Oriented X3, Cooperative, No acute distress HEENT: Atraumatic, PERRLA, EOMI, Mucous membr. moist/pink Respiratory: Clear to auscultation, Normal air movement Cardiovascular: Normal S1, Normal S2, No murmurs Abdominal: Soft Extremities: No clubbing, No cyanosis, No edema, Normal pulses, No tenderness/swelling Skin: No rashes, No breakdown, No significant lesion Neuro: Normal gait, Strength at 5/5 X4 ext, Normal tone, Sensation intact Psych/Mental Status: Mental status NL, Mood NL Labs/Xrays Labs Test 04/09/24 10:03 Range/Units White Blood Count 10.1 4.4-10.8 10^3/uL Red Blood Count 4.91 4.0-5.20 10^6/uL Hemoglobin 13.6 12.2-16.2 g/dL Hematocrit 40.3 36.0-46.0 % Mean Corpuscular Volume 82.1 80.0-100.0 fL Mean Corpuscular Hemoglobin 27.7 L 28.0-32.0 pg Mean Corpuscular Hemoglobin Concent 33.7 32.0-36.0 g/dL Red Cell Distribution Width 14.7 H 11.8-14.3 % Platelet Count 335 140-450 10^3/uL Mean Platelet Volume 7.7 6.9-10.8 fL Neutrophils (%) (Auto) 77.8 37.0-80.0 % Lymphocytes (%) (Auto) 16.7 10.0-50.0 % Monocytes (%) (Auto) 3.9 0.0-12.0 % Eosinophils (%) (Auto) 0.7 0.0-7.0 % Basophils (%) (Auto) 0.9 0.0-2.0 % Neutrophils # (Auto) 7.9 1.6-8.6 10 ^3/uL Lymphocytes # (Auto) 1.7 0.4-5.4 10 ^3/uL Monocytes # (Auto) 0.4 0-1.3 10 ^3/uL Eosinophils # (Auto) 0.1 0-0.8 10 ^3/uL Basophils # (Auto) 0.1 0-0.2 10 ^3/uL Nucleated Red Blood Cells 0.0 % Assessment/Plan Assessment/Plan Assessment/Plan: Intractable abdominal pain possibly acute cholecystitis UTI Ketonuria Labs A.m. labs HIDA scan UA Pain management NS given ED Antiemetics T bili Lipase Amylase NPO Protonix IV fluids IV antibiotics-Zosyn + ceftriaxone General surgery consult CT A/P Chronic hyperlipidemia Follow up outpatient with PCP History of diabetes Last hemoglobin A1c 5.8% on 04/04/24 ISS and Accu-Cheks Lactulose intolerance Avoid dairy FEN/PPX IV fluids NPO DVT prophylaxis not indicated patient ambulating PUD prophylaxis -Protonix Admit to med surg Patient states she doesn't take any home medications Discussed plan of care with patient and nurse Plan discussed with: Patient My Orders Orders - CHERYL GREGORIO KNITTER OPERATOR Procedure Category Date Status Time Piperacillin-Tazob PHA 04/09/24 Logged 3.375gm (Zosyn 3.375g 10:15 Piperacillin-Tazob PHA 04/09/24 Logged 3.375gm (Zosyn 3.375g 14:00 Admit ADMIT 04/09/24 Transmitted 10:07 Allergies ARMAAN 04/09/24 In Process 10:07 Code Status CODE 04/09/24 Transmitted 10:07 Sodium Chloride 0.9% PHA 04/09/24 Logged 10:15 Hydrocodone-Acet PHA 04/09/24 Logged 5/325mg Tab ([place] 10:15 Ondansetron Hcl PHA 04/09/24 Logged (Zofran) 10:15 Complete Blood Count LAB 04/10/24 Verified 04:00 Comprehensive LAB 04/10/24 Verified Metabolic Panel 04:00 Npo (Nothing By DIET 04/09/24 Transmitted Mouth) Diet Lunch Acetaminophen Tablet PHA 04/09/24 Logged (Tylenol Tablet) 10:15 Morphine Sulfate PHA 04/09/24 Logged Injection 10:15 Amylase LAB 04/09/24 Logged 10:07 Pantoprazole PHA 04/10/24 Logged (Protonix) 10:00 Date of Service: Apr 09, 2024 Billing Provider: CHERYL GREGORIO Common Visit Codes: [id number] INP/OBS CARE (HIGH) CHERYL GREGORIO Apr 09, 2024 10:44
[2024-04-09] MEDS ORDERED: DEXTROSE (50%) 50ML SYRG IV PRN (10:45)
[2024-04-09 10:58] LABS: Lipase 56 U/L (12-53)
[2024-04-09] MEDS: PIPERACILLIN-TAZOB 3.375GM 100 ML IV ONE (11:08)
[2024-04-09 11:12] LABS: Amphetamine Screen, Urine Neg (NEGATIVE); Benzodiazephine Screen, Urine Neg (NEGATIVE)
[2024-04-09 11:13] LABS: Opiate Scree,Urine Pos (NEGATIVE)
[2024-04-09 11:14] LABS: Barbiturate Scree,Urine Neg (NEGATIVE); Cannabinoid Screen, Urine Neg (NEGATIVE); Cocaine Screen, Urine Neg (NEGATIVE); Phencyclidine Screen, Urine Neg (NEGATIVE)
[2024-04-09 11:16] LABS: Urine Blood Negative /uL (Negative); Urine Clarity Clear (Clear); Urine Color Yellow (Yellow); Urine Protein, UAD Negative (Negative); Urine Specific Gravity 1.018 (1.001-1.035); Urine Squamous Epithelial Cell FEW /hpf (<5); Urine Urobilinogen Normal (Negative); Urine WBC 1 /hpf (0 - 5)
[2024-04-09] MEDS: SODIUM CHLORIDE 0.9% 1,000 ML IV SCH (11:20)
[2024-04-09 11:21] VITALS: RESP 16; O2SAT 99
[2024-04-09] MEDS ORDERED: cefTRIAXone 1GM/50ML D5W 50 ML IV ONE (11:30)
--- NOTE | 2024-04-09 11:31 | DVH ---
CT ABDOMEN AND PELVIS WITHOUT CONTRAST CLINICAL HISTORY: abd pain TECHNIQUE: Multiple contiguous axial images of the abdomen and pelvis without intravenous contrast. The images were reformatted degenerate coronal and sagittal reconstructions. All CT scans at this medical facility are performed using dose modulation techniques as appropriate t o a performed exam including the following:Automated exposure control was utilized; adjustment of the MA and/or KV according to patient size; and use of iterative reconstruction technique. Radiation Dose Information: CT Dose: CTDI volume is 20 mGy. Dose-length product is 11 40 mGy*cm Comparison: CT CT AB PEL WO CON-NO ORAL OR IV on DOS: 04/04/24, CT CT AB PEL WO CON-NO ORAL OR IV on D OS: 09/13/23 FINDINGS: Evaluation of the abdomen and pelvis is limited without intravenous contrast. The gallbladder again demonstrates wall thickening with likely small amount of pericholecystic fluid. There is some dependent layering hyperdense sludge versus tiny gallstones in the gallbladder fundus. The liver, pancreas, kidneys, adrenal glands, and spleen appear within normal limits. There is no gross evidence of abdominal lymphadenopathy. There is no free fluid or free air. The stomach grossly appears unremarkable. The small and large bowel loops demonstrate normal caliber and within normal limits.. The abdominal aorta and IVC appear within normal limits. The bladder appears unremarkable for the degree of distention. Pelvic organ appears within normal santana its. There is no gross evidence of a pelvic mass. There is no free fluid collection. Lung bases are clear. There is no acute osseous abnormality. IMPRESSION: 1. The gallbladder again appears irregular with wall thickening and likely small amount of pericholec ystic fluid. There is some dependently layering hyperdense sludge versus tiny gallstones in the gallb ladder fundus. Clinical correlation is recommended as well as further evaluation with HIDA scan. HS:Y
[2024-04-09] MEDS: InsuLIN REG 1unit/0.01ml Soln (100units/ml) SC SCH (12:00)
[2024-04-09] MEDS: ACCU-CHEK COMFORT CURVE STRIP VI SCH (12:41)
[2024-04-09 13:10] VITALS: BP 123/68; PULSE 66; RESP 16; TEMP 97.8; O2SAT 99
[2024-04-09] MEDS ORDERED: PIPERACILLIN-TAZOB 3.375GM 100 ML IV SCH (14:00)
[2024-04-10] MEDS ORDERED: cefTRIAXone 1GM/50ML D5W 50 ML IV SCH (09:00)
[2024-04-10] MEDS ORDERED: PANTOPRAZOLE 40 MG/10 ML VIAL INJ IV SCH (10:00)
== END 2024-04-09 13:21 | disposition left against medical advice (07) ==
LOC: ER 08:19 → OVERFLOW 10:07
DX: K81.0 Acute cholecystitis (principal); E11.9 Type 2 diabetes mellitus without complications; E78.5 Hyperlipidemia, unspecified; K21.9 Gastro-esophageal reflux disease without esophagitis; N39.0 Urinary tract infection, site not specified; Z53.29 Procedure and treatment not carried out because of patient's decision for other reasons
CPT/HCPCS: 36415; 74176; 80048; 80307; 81001; 82150; 82247; 82962; 83690; 85025; 96365; 96375; 99291; G0378; J2405; J2543

== ENCOUNTER → 2024-07-02 | Day surgery (SDC) | payer MEDICAID ==
[2024-06-26 11:13] LABS: Urine Bacteria None Seen /hpf (None Seen)
[2024-06-26 11:15] LABS: Basophils # (auto) 0.1 10 ^3/uL (0-0.2); Eosinophils # (auto) 0.2 10 ^3/uL (0-0.8); Eosinophils % (auto) 1.9 % (0.0-7.0); Hematocrit 43.1 % (36.0-46.0); Hemoglobin 14.3 g/dL (12.2-16.2); Lymphocytes # (auto) 4.1 10 ^3/uL (0.4-5.4); Lymphocytes % (auto) 36.4 % (10.0-50.0); Mean Corpuscular Hemoglobin 27.4 pg (28.0-32.0); Mean Corpuscular Hgb Conc. 33.2 g/dL (32.0-36.0); Mean Corpuscular Volume 82.5 fL (80.0-100.0); Monocytes # (auto) 0.5 10 ^3/uL (0-1.3); Monocytes % (auto) 4.4 % (0.0-12.0); Neutrophils # (auto) 6.4 10 ^3/uL (1.6-8.6); Neutrophils % (auto) 56.3 % (37.0-80.0); Platelet Count (auto) 418 10^3/uL (140-450); Red Blood Cells 5.23 10^6/uL (4.0-5.20); Red Cell Distribution Width 14.3 % (11.8-14.3); White Blood Cell 11.3 10^3/uL (4.4-10.8)
[2024-06-26 11:33] LABS: INR 1.01 (0.9-1.15); Prothrombin Time 10.7 sec (9.3-11.8)
[2024-06-26 11:52] LABS: Alanine Aminotransferase 18 U/L (7-40); Albumin 4.6 g/dL (3.2-4.8); Anion Gap 8 (5-15); Aspartate Aminotransferase 15 U/L (13-40); BUN/Creatinine Ratio 15.9 (10.0-20.0); Blood Urea Nitrogen 11 mg/dL (9-23); Calcium 9.8 mg/dL (8.7-10.4); Carbon Dioxide 26 mmol/L (20-31); Chloride 105 mmol/L (98-107); Glucose 100 mg/dL (74-106); Potassium 4.3 mmol/L (3.5-5.1); Sodium 139 mmol/L (136-145); Total Protein 7.8 g/dL (5.7-8.2)
[2024-06-26 11:53] LABS: Bilirubin, Total 0.3 mg/dL (0.2-1.0)
[2024-06-26 12:07] LABS: Alkaline Phosphatase 137 U/L (46-116)
[2024-06-26 12:08] LABS: Urine Blood Negative /uL (Negative); Urine Clarity Clear (Clear); Urine Color Yellow (Yellow); Urine Mucus FEW (None Seen); Urine Protein, UAD Negative (Negative); Urine Specific Gravity 1.027 (1.001-1.035); Urine Squamous Epithelial Cell FEW /hpf (<5); Urine Urobilinogen Normal (Negative); Urine WBC 1 /HPF (0-5)
[~2024-07-02] VITALS: Ht 154.9 cm; Wt 90.7 kg
[~2024-07-02] MED LIST changes: +BUPIVACAINE HCL 0.25% P/F 10 ML VIAL ONE; -CARI250T PO; +CEPH500C PO; -CYCL-837 PO; +DexAMETHasone SOD PHOS 10MG/1ML VIAL INJ ONE; -GABA-1308 PO; +GLYCOPYRROLATE 0.2 MG/ML 1ML VIAL ONE; +HYDR-4072 PO; +HYDROmorphone HCL 2 MG/ML VL/or syr IV PRN; +HYDROmorphone HCL 2 MG/ML VL/or syr ONE; +KETAMINE 50mg/ML 1ml syringe ONE; +KETOROLAC TROMETH 30 MG/ML 1ML VIAL ONE; -LEVO500T91 PO; +LIDOCAINE 2% (LOCAL ANESTH.) PF 5ml SDV ONE; -MELO7.5T7 PO; -METR-344 PO; +MIDAZOLAM HCL 2MG/2ML 2ml VIAL (1mg/ml) ONE; +ONDANSETRON HCL 4 MG/2 ML VIAL ONE; -PANT40TA2 PO; +PROPOFOL 10 MG/ML 20 ML IV ONE; +ceFAZolin 2 GM/D5W50ml 50 ML IV ONE; +ePHEDrine SULFATE 50 MG/ML AMP ONE; +fentaNYL CITRATE 100 MCG/2 ML VL ONE
[2024-07-02] MEDS: BUPIVACAINE W/ EPINEPH 0.5% MPF 30ML VIAL IJ ONE (09:50)
[2024-07-02 09:54] VITALS: PULSE 82; RESP 16; O2SAT 96
[2024-07-02 09:59] VITALS: PULSE 82; RESP 16; O2SAT 96
[2024-07-02 10:00] VITALS: TEMP 98.5
--- NOTE | 2024-07-02 10:13 | DVHOP2 ---
Operative Report - 2 Report Details Date: 07/02/24 Preop Diagnosis: Left knee medial meniscus tear, OA mild/moderate Postop Diagnosis: Left knee medial meniscus tear, posterior horn, complex, lateral meniscus tear, posterior horn, compex, OA trochlea, grade 4, hypertrophic synovium Surgeon: Chava Dillon MD Welder Assembler: none Anesthesiologist: Dr Escudero Anesthesia: General Drains: none Implant: none Consent: The patient was informed of the risks and benefits of the procedure. These include but are not limited to complications of anesthesia, postoperative infection, incomplete relief of symptoms, recurrence of symptoms, damage to blood vessels, nerves and tendons, deep venous thrombosis, pulmonary embolism and possible need for repeat surgery in the future. Complications: none Estimated Blood Loss: 10 cc Fluids: 500 cc crystalloid Findings: Left knee, grade 4 chondromalacia trochlea, medial and lateral complex tear postrior horn medial and lateral menisci intact ACL Indications for Surgery: painful left knee non responsive to conservative care, MRI showing medial meniscus tear Name of Procedure Performed Left knee arthropscopic debride medial meniscus tear, lateral meniscus tear, chondroplasty trochlea Procedure Details Procedure Details: Patient brought to OR, non sterile tourniquet applied to left thigh, sterile prep and drape left leg, timeout perofrmed, confirmaiton left side correct and arthroscopic debride medial menscus correct procedure after reviewof operative ocnsent, hsitory and physical and my initials on left knee. Exanguination of left leg, tourniquet elevated to 300 mm HG, totoal time 30 min. Diagnostici scope showed grade 4 shondromalacia medial and lateral, grade 3 CM patella medial and lateral and medial lateral joint spaces, complex tears PHMM and LM Shaver used to debride menisci, ACL intact, heat wand used to seal edges of troclear cartilage loss. tourniquet let down, excellent hemostasis, 40 nylon to close the portals, dry dressing, loose joanna wrap, WBAT with FWW , follow up ortho clinic two weeks. Specimen: none Condition Stable Disposition Home CHAVA DILLON MD Jul 02, 2024 10:13
[2024-07-02] MEDS: ONDANSETRON HCL 4 MG/2 ML VIAL IV ONE (11:25)
[2024-07-02 11:40] VITALS: BP 123/76; PULSE 87; RESP 17; O2SAT 96
== END | disposition home or self-care (01) ==
LOC: SUR 06:05
PROVIDERS: ATTEND Orthopaedic Surgery
DX: S83.232A Complex tear of medial meniscus, current injury, left knee, initial encounter (principal); S83.272A Complex tear of lateral meniscus, current injury, left knee, initial encounter; X58.XXXA Exposure to other specified factors, initial encounter; Y93.89 Activity, other specified; Y92.89 Other specified places as the place of occurrence of the external cause; Y99.8 Other external cause status; M94.262 Chondromalacia, left knee; E11.9 Type 2 diabetes mellitus without complications; G47.33 Obstructive sleep apnea (adult) (pediatric); K21.9 Gastro-esophageal reflux disease without esophagitis; Z98.51 Tubal ligation status; Z90.49 Acquired absence of other specified parts of digestive tract; Z98.890 Other specified postprocedural states
CPT/HCPCS: 29880; 36415; 80053; 81001; 85025; 85610; 85730; J0690; J1100; J1171; J1885; J2003; J2250; J2405; J2704; J3010; J3490

== ENCOUNTER → 2024-08-13 | Outpatient (CLI) | payer MEDICAID ==
[~2024-08-13] MED LIST changes: -BUPIVACAINE HCL 0.25% P/F 10 ML VIAL ONE; -DexAMETHasone SOD PHOS 10MG/1ML VIAL INJ ONE; -GLYCOPYRROLATE 0.2 MG/ML 1ML VIAL ONE; -HYDROmorphone HCL 2 MG/ML VL/or syr IV PRN; -HYDROmorphone HCL 2 MG/ML VL/or syr ONE; -KETAMINE 50mg/ML 1ml syringe ONE; -KETOROLAC TROMETH 30 MG/ML 1ML VIAL ONE; -LIDOCAINE 2% (LOCAL ANESTH.) PF 5ml SDV ONE; -MIDAZOLAM HCL 2MG/2ML 2ml VIAL (1mg/ml) ONE; -ONDANSETRON HCL 4 MG/2 ML VIAL ONE; -PROPOFOL 10 MG/ML 20 ML IV ONE; -ceFAZolin 2 GM/D5W50ml 50 ML IV ONE; -ePHEDrine SULFATE 50 MG/ML AMP ONE; -fentaNYL CITRATE 100 MCG/2 ML VL ONE
[2024-08-13 14:09] LABS: Urine Bacteria None Seen /hpf (None Seen)
[2024-08-13 14:32] LABS: Basophils # (auto) 0.1 10 ^3/uL (0-0.2); Basophils % (auto) 0.6 % (0.0-2.0); Eosinophils # (auto) 0.3 10 ^3/uL (0-0.8); Eosinophils % (auto) 2.9 % (0.0-7.0); Hematocrit 42.9 % (36.0-46.0); Hemoglobin 14.3 g/dL (12.2-16.2); Lymphocytes # (auto) 4.5 10 ^3/uL (0.4-5.4); Lymphocytes % (auto) 38.3 % (10.0-50.0); Mean Corpuscular Hgb Conc. 33.4 g/dL (32.0-36.0); Mean Corpuscular Volume 80.9 fL (80.0-100.0); Monocytes # (auto) 0.6 10 ^3/uL (0-1.3); Monocytes % (auto) 5.1 % (0.0-12.0); Neutrophils # (auto) 6.2 10 ^3/uL (1.6-8.6); Neutrophils % (auto) 53.1 % (37.0-80.0); Nucleated Red Blood Cells % 0.2 %; Platelet Count (auto) 376 10^3/uL (140-450); Red Cell Distribution Width 14.1 % (11.8-14.3); White Blood Cell 11.7 10^3/uL (4.4-10.8)
[2024-08-13 14:36] LABS: Potassium 4.2 mmol/L (3.5-5.1)
[2024-08-13 14:39] LABS: Urine Blood Negative /uL (Negative); Urine Clarity Turbid (Clear); Urine Color Yellow (Yellow); Urine Mucus FEW (None Seen); Urine Protein, UAD TRACE (Negative); Urine Specific Gravity 1.029 (1.001-1.035); Urine Squamous Epithelial Cell FEW /hpf (<5); Urine Urobilinogen Normal (Negative); Urine WBC 4 /HPF (0-5)
[2024-08-13 14:46] LABS: Folate (Folic Acid) 16.21 ng/mL (>5.38)
[2024-08-13 15:20] LABS: Hepatitis B Core Total AB Negative (Negative)
[2024-08-13 16:31] LABS: Hepatitis A Total Antibody Negative (Negative); Hepatitis B Surface Antibody Positive (Negative); Hepatitis B Surface Antigen Negative (Negative); Hepatitis C Antibody Negative (Negative)
== END | disposition home or self-care (01) ==
LOC: LAB 13:44
PROVIDERS: ATTEND Student in an Organized Health Care Education/Training Program
DX: E11.9 Type 2 diabetes mellitus without complications (principal); E78.2 Mixed hyperlipidemia; R70.1 Abnormal plasma viscosity; Z11.3 Encounter for screening for infections with a predominantly sexual mode of transmission
CPT/HCPCS: 36415; 80051; 80061; 81001; 82306; 82607; 82746; 83036; 84443; 85025; 86703; 86704; 86706; 86708; 86780; 86803; 87340

== ENCOUNTER → 2024-11-07 | Outpatient (CLI) | payer MEDICAID ==
[2024-11-07 10:24] LABS: Alanine Aminotransferase 26 U/L (7-40); Albumin 4.5 g/dL (3.2-4.8); Anion Gap 8 (5-15); BUN/Creatinine Ratio 15.5 (10.0-20.0); Blood Urea Nitrogen 11 mg/dL (9-23); Calcium 9.2 mg/dL (8.7-10.4); Carbon Dioxide 27 mmol/L (20-31); Glucose 88 mg/dL (74-106); Potassium 4.1 mmol/L (3.5-5.1); Sodium 143 mmol/L (136-145); Total Protein 7.1 g/dL (5.7-8.2); Triglycerides 110 mg/dL (< 150)
[2024-11-07 10:25] LABS: Bilirubin, Total 0.7 mg/dL (0.2-1.0); Cholesterol 143 mg/dL (< 200); HDL Cholesterol 44 mg/dL (40-59)
[2024-11-07 10:28] LABS: Alkaline Phosphatase 128 U/L (46-116); Chloride 108 mmol/L (98-107)
[2024-11-07 10:36] LABS: Urine Protein, UAD Negative (Negative)
[2024-11-07 10:39] LABS: Hematocrit 42.2 % (36.0-46.0); Hemoglobin 14.3 g/dL (12.2-16.2); Mean Corpuscular Hemoglobin 27.4 pg (28.0-32.0); Mean Corpuscular Volume 80.7 fL (80.0-100.0); Nucleated Red Blood Cells % 0.1 %
[2024-11-07 12:23] LABS: Hepatitis A Total Antibody Negative (Negative)
[2024-11-07 12:24] LABS: Hepatitis B Surface Antigen Negative (Negative); Hepatitis C Antibody Negative (Negative)
== END | disposition home or self-care (01) ==
LOC: LAB 09:38
PROVIDERS: ATTEND Nurse Practitioner Family
DX: E78.5 Hyperlipidemia, unspecified (principal); E55.9 Vitamin D deficiency, unspecified; K21.00 Gastro-esophageal reflux disease with esophagitis, without bleeding; Z11.3 Encounter for screening for infections with a predominantly sexual mode of transmission; Z11.9 Encounter for screening for infectious and parasitic diseases, unspecified
CPT/HCPCS: 36415; 80053; 80061; 81001; 82306; 83036; 84443; 85025; 86703; 86704; 86706; 86708; 86780; 86803; 87340

== ENCOUNTER → 2024-11-11 | Outpatient (CLI) | payer MEDICAID | END | disposition home or self-care (01) | LOC: LAB 09:27 | PROVIDERS: ATTEND Nurse Practitioner Family | DX: E78.5 Hyperlipidemia, unspecified (principal); E55.9 Vitamin D deficiency, unspecified; K21.00 Gastro-esophageal reflux disease with esophagitis, without bleeding; Z11.3 Encounter for screening for infections with a predominantly sexual mode of transmission; Z11.59 Encounter for screening for other viral diseases | CPT/HCPCS: 82274 ==

== ENCOUNTER 2025-01-04 18:37 | Emergency (ER) | payer MEDICAID ==
[~2025-01-04] VITALS: Ht 154.9 cm; Wt 91.7 kg
--- NOTE | 2025-01-04 20:08 | ED.PDOC ---
Santos. trauma (HPI) HPI Comments This is a 54 year-old female who presents to the ED with a chief complaint of head injury with symptoms of N/V S/P fall today while drinking. Patient reports head pain to the posterior region. Patient is able to speak in complete sentences, using clear speech. There are no further complaints or modifying factors at this time. Patient otherwise denies symptoms of fever, chills, dizziness, chest pain, or palpitations. Chief Complaint: Head Injury Time Seen by MD: 20:00 Primary Care Provider: LUIS Reviewed notes: Medications, Allergies Allergies: Coded Allergies: NO KNOWN ALLERGIES (Unverified , 11/09/22) Home Meds Active Scripts Ondansetron Odt 4MG Tab (ZOFRAN PO) 4 Mg Tb, 4 MG PO TID PRN for 4 Days, #12 TAB ODT TAB-DISSOLVE IN MOUTH, THEN SWALLOW Prov:CIRO FORDE VITICULTURE TEACHER 01/04/25 Hydrocodone-Acetaminophen (Hydrocodone/Acetaminophen 10-325 mg) 1 Tab Tab, 1 TAB PO Q6HPRN PRN, #30 TAB Prov:ASH ROTH PAC 07/03/24 Cephalexin Monohydrate (Cephalexin) 500 Mg Cap, 1 CAP PO BID for 7 Days, #28 CAP Prov:ASH ROTH PAC 07/03/24 Information Source: Patient, Spouse Mode of Arrival: Ambulatory Severity: Moderate Timing: Hours Duration: Since onset Location: Head Mechanism: Fall Associated signs and symtoms: Headache Past Medical History PAST MEDICAL HISTORY: DM Surgical History: Tubal Ligation CRUSHER ASSEMBLER History: No Pertinent CRUSHER ASSEMBLER History Family History Family History: Reviewed,noncontributory to illness, Unknown Social History Smoker: Non-Smoker Alcohol: Denies ETOH Use Drugs: Denies Drug Use Lives In: Home Constitutional: denies: chills, diaphoresis, fatigue, fever, malaise, sweats, weakness, others EENTM: denies: blurred vision, double vision, ear bleeding, ear discharge, ear drainage, ear pain, ear ringing, eye pain, eye redness, hearing loss, mouth pain, mouth swelling, nasal discharge, nose bleeding, nose congestion, nose pain, photophobia, tearing, throat pain, throat swelling, voice changes, others Respiratory: denies: cough, hemoptysis, orthopnea, SOB at rest, shortness of breath, SOB with excertion, stridor, wheezing, others Cardiovascular: denies: chest pain, dizzy spells, diaphoresis, Dyspnea on exertion, edema, irregular heart beat, left arm pain, lightheadedness, palpitations, PND, syncope, others Gastrointestinal: reports: nausea, vomiting; denies: abdomen distended, abdominal pain, blood streaked bowels, constipated, diarrhea, dysphagia, difficulty swallowing, hematemesis, melena, poor appetite, poor fluid intake, rectal bleeding, rectal pain, others Genitourinary: denies: abnormal vagina bleeding, burning, dyspareunia, dysuria, flank pain, frequency, hematuria, incontinence, pain, , vagina discharge, urgency, others Neurological: reports: headache; denies: dizziness, fainting, left sided numbness, left sided weakness, numbness, paresthesia, pre-existing deficit, right sided numbness, right sided weakness, seizure, speech problems, tingling, tremors, weakness, others Musculoskeletal: denies: back pain, gout, joint pain, joint swelling, muscle pain, muscle stiffness, neck pain, others Integumetry: denies: bruises, change in color, change in hair/nails, dryness, laceration, lesions, lumps, rash, wounds, others Allergic/Immunocompromised: denies: Difficulty Healing, Frequent Infections, Hives, Itching, others Hematologic/Lymphatic: denies: anemia, blood clots, easy bleeding, easy bruising, swollen glands, others Endocrine: denies: excessive hunger, excessive sweating, excessive thirst, excessive urination, flushing, intolerance to cold, intolerance to heat, unexplained weight gain, unexplained weight loss, others Psychiatric: denies: anxiety, bipolar disorder, depression, hopeless, panic disorder, schizophrenia, sleepless, suicidal, others All Other Systems: Reviewed and Negative Physical Exam General Appearance: No Apparent Distress, Normal HEENT: Normal ENT Inspection, Pharynx Normal, TMs Normal Neck: Limited Range of Motion, Tender Lateral Respiratory: Lungs Clear, No Respiratory Distress, Normal Breath Sounds Cardiovascular: No Edema, No JVD, No Murmur, No Gallop, Normal Peripheral Pulses, Regular Rate/Rhythm Breast Exam: Deferred Gastrointestinal: No Organomegaly, Non Tender, No Pulsatile Mass, Normal Bowel Sounds, Soft Genitalia: Deferred Pelvic: Deferred Rectal: Deferred Extremities: Normal capillary refill, Normal range of motion, No pedal edema Musculoskeletal : Apperance: Normal Neurologic: Alert, No Motor Deficits, Normal Affect, Normal Mood, No Sensory Deficits Cerebellar Function: Normal Reflexes: Normal Skin: Dry, Normal Color, Warm Lymphatic: No Adenopathy Was a procedure done? Was a procedure done?: No Differential Diagnosis Multiple Trauma: Closed Head Injury, Abrasions, Contusion X-Ray, Labs, Meds, VS Vital Signs Date Time Temp Pulse Resp B/P (MAP) Pulse Ox O2 Delivery O2 Flow Rate FiO2 01/04/25 20:24 97.5 77 17 117/71 (86) 98 97.5 01/04/25 20:24 77 17 98 Room Air 01/04/25 18:39 97.8 83 18 138/78 100 97.8 Current Medications Medications (Trade) Dose Ordered Sig/Hannah Route Start Time Stop Time Status Last Admin Ondansetron HCl (Zofran Po) 8 mg ONCE ONCE PO 01/04/25 20:15 01/04/25 20:16 DC 01/04/25 20:24 X-Ray, Labs, Meds, VS Comment FINDINGS: There is no evidence of acute intracranial hemorrhage, extra-axial collection, mass effect, midline shift, herniation or hydrocephalus. The ventricles, sulci and cisterns are age appropriate. The hawthorne-white differentiation is intact. Patchy periventricular and subcortical white matter hypoattenuation is nonspecific but may be related to small vessel ischemic disease. The visualized paranasal sinuses and mastoid air cells are clear. The surrounding soft tissues and osseous structures are unremarkable. IMPRESSION: No acute intracranial abnormality. CT cervical spine shows no acute fractures subluxations or osseous lesions. CT brain shows no acute bleed does show chronic ischemic changes. Patient was given Zofran 8 mg p.o. reports improvement in symptoms requesting discharge at this time. Trial of Zofran to maintain hydration. Advised to rest increase p.o. fluids with electrolytes light diet for the next 24 hours. Advised to monitor any change in symptoms increasing pain numbness weakness stroke-like symptoms return to the ER or call 911. Patient transported home by . Advised to refrain from alcohol. ER return precautions given patient indicates understanding agrees with discharge plan of care. Images Reviewed?: Images reviewed and evaluated by me Time of 1ST Reevaluation: 20:44 Reevaluation 1ST: Unchanged Time of 2ND Reevaluation: 20:40 Reevaluation 2ND: Improved Patient Education/Counseling: Diagnosis, Treatment, Need For Follow Up Family Education/Counseling: Diagnosis, Treatment, Need For Follow Up Departure 1 Departure Time of Disposition: 20:41 Impression: Primary Impression: Closed head injury Qualified Codes: S09.90XA - Unspecified injury of head, initial encounter Additional Impressions: ETOH abuse Whiplash injury Qualified Codes: S13.4XXA - Sprain of ligaments of cervical spine, initial encounter Nausea Disposition: HOME / SELF CARE / HOMELESS Condition: Stable e-Prescriptions Ondansetron Odt 4MG Tab (ZOFRAN PO) 4 Mg Tb 4 MG PO TID PRN for 4 Days, #12 TAB ODT TAB-DISSOLVE IN MOUTH, THEN SWALLOW Prov: CIRO FORDE 01/04/25 Discharged With: Significant Other Critical Care Note Critical Care Time?: No Stability Stability form required: No Heart Score Heart Score: Heart Score Response (Comments) Value History N/A 0 EKG N/A 0 Age N/A 0 Risk Factors N/A 0 Troponin N/A 0 Total 0 I personally scribed for ER ([email or web address]) on 01/04/25 at 20:08. Electronically submitted by [facility] ER Jan 04, 2025 20:08 CIRO FORDE Jan 04, 2025 20:24
--- NOTE | 2025-01-04 20:22 | DVH ---
EXAM: CT HEAD WITHOUT CONTRAST INDICATION: Post head injury, neck pain, positive ETOH TECHNIQUE: CT of the head without intravenous contrast. Radiation Dose Information: CT Dose: CTDI volume is 51.09 mGy. Dose-length product is 819.17 mGy*cm The dose indicators for CT are the volume Computed Tomography (CT) Dose Index (CTDIvol) and the Dose Length Product (DLP), and are measured in units of mGy and mGy-cm, respectively. These indicators are not patient dose, but values generated from the CT scanner acquisition factors. The report includes radiation exposure data for exposures received during this examination. COMPARISON: None FINDINGS: There is no evidence of acute intracranial hemorrhage, extra-axial collection, mass effect, midline s hift, herniation or hydrocephalus. The ventricles, sulci and cisterns are age appropriate. The hawthorne-white differentiation is intact. Patchy periventricular and subcortical white matter hypoattenuation is nonspecific but may be related to small vessel ischemic disease. The visualized paranasal sinuses and mastoid air cells are clear. The surrounding soft tissues and osseous structures are unremarkable. IMPRESSION: No acute intracranial abnormality.
[2025-01-04 20:24] VITALS: BP 117/71; PULSE 77; RESP 17; TEMP 97.5; O2SAT 98
[2025-01-04] MEDS: ONDANSETRON ODT 4 MG TAB PO ONE (20:24)
--- NOTE | 2025-01-04 20:35 | DVH ---
EXAM: CT CERVICAL WITHOUT CONTRAST HISTORY: Status post fall, neck pain COMPARISON: CT HEAD WITHOUT CONTRAST on DOS: 01/04/25 CTDIvol 24.83 mGy, DLP 632.66 mGy*cm. TECHNIQUE: Multiple axial CT images of the spine were obtained using bone algorithm. Axial and perry l reformatting was done. Bone and soft tissue windows were reviewed. FINDINGS: No evidence of definite acute fracture, spinal dislocation, or significant appearing acute subluxatio n is seen. Straightening of normal cervical lordosis. Alignment otherwise maintained. Moderate degenerative dis c disease at C5-6. IMPRESSION: No acute cervical spine abnormality.
[2025-01-04] MEDS ORDERED: ZOFR4T PO (20:42)
== END 2025-01-04 20:51 | disposition home or self-care (01) ==
LOC: ER 18:37
DX: S09.8XXA Other specified injuries of head, initial encounter (principal); S13.4XXA Sprain of ligaments of cervical spine, initial encounter; E11.9 Type 2 diabetes mellitus without complications; F10.10 Alcohol abuse, uncomplicated; Z98.51 Tubal ligation status
CPT/HCPCS: 70450; 72125; 99284; Q0162

== ENCOUNTER 2025-01-06 13:12 | Emergency (ER) | payer MEDICAID ==
[~2025-01-06] VITALS: Ht 154.9 cm; Wt 93.0 kg
[~2025-01-06 13:12] MED LIST changes: +ZOFR4T PO
[2025-01-06] MEDS ORDERED: TRAM-626 PO (13:58)
--- NOTE | 2025-01-06 13:58 | ED.PDOC ---
Back pain HPI HPI Comments 54-year-old female presents to the ER with a the chief complaint of back pain S/P fall. Patient reports on having back pain after falling on Sunday, patient was intoxicated at the time and fell onto a bar stool, impact in the middle of her back. The pain became noticeable with the following day as they were initially focused on the back injuries. The pain in his described as severe with the a 10/10 on the pain scale, in his exacerbated by walking and/or sitting. The pain is localized in the middle of the back and does not radiate elsewhere. Patient does have a history of arthritis in the back but has not undergone any surgeries at the time. Denies any other symptoms at this time. Denies history of chronic steroid use or history of osteoporosis Denies history of cancer Denies fevers chills night sweats nausea vomiting unintentional weight loss Denies abdominal tearing pain Denies syncope Denies urinary changes or urinary incontinence Denies numbness tingling of the groin her inner thigh Denies previous back procedures or surgeries Chief Complaint: Back Pain Time Seen by MD: 14:30 Primary Care Provider: LUIS Reviewed Notes: Nurses Notes, Medications, Allergies Allergies: Coded Allergies: NO KNOWN ALLERGIES (Unverified , 11/09/22) Home Meds Active Scripts Tramadol HCl (Tramadol HCl) 50 Mg Tab, 50 MG PO Q8HP PRN for 2 Days, #6 TAB 0 Refills Prov:EL WINTERS ASSURANCE SENIOR MANAGER INSURANCE 01/06/25 Ondansetron Odt 4MG Tab (ZOFRAN PO) 4 Mg Tb, 4 MG PO TID PRN for 4 Days, #12 TAB ODT TAB-DISSOLVE IN MOUTH, THEN SWALLOW Prov:CIRO FORDE HYDRAULIC PLUMBER 01/04/25 Hydrocodone-Acetaminophen (Hydrocodone/Acetaminophen 10-325 mg) 1 Tab Tab, 1 TAB PO Q6HPRN PRN, #30 TAB Prov:ASH ROTH PAC 07/03/24 Cephalexin Monohydrate (Cephalexin) 500 Mg Cap, 1 CAP PO BID for 7 Days, #28 CAP Prov:ASH ROTH PAC 07/03/24 Information Source: Patient Mode of Arrival: Ambulatory Timing: Days Duration: Since onset, Days Severity: Moderate Prehospital treatment: None Quality: Aching Onset: Fall History of: Arthritis Associated signs and symptoms: None Past Medical History PAST MEDICAL HISTORY: Arthritis, DM Surgical History: Tubal Ligation NURSE ANESTHETIST History: No Pertinent NURSE ANESTHETIST History Family History Family History: Reviewed,noncontributory to illness, Unknown Social History Smoker: Non-Smoker Alcohol: Denies ETOH Use Drugs: Denies Drug Use Lives In: Home Constitutional: denies: chills, diaphoresis, fatigue, fever, malaise, sweats, weakness, others EENTM: denies: blurred vision, double vision, ear bleeding, ear discharge, ear drainage, ear pain, ear ringing, eye pain, eye redness, hearing loss, mouth pain, mouth swelling, nasal discharge, nose bleeding, nose congestion, nose pain, photophobia, tearing, throat pain, throat swelling, voice changes, others Respiratory: denies: cough, hemoptysis, orthopnea, SOB at rest, shortness of breath, SOB with excertion, stridor, wheezing, others Cardiovascular: denies: chest pain, dizzy spells, diaphoresis, Dyspnea on exertion, edema, irregular heart beat, left arm pain, lightheadedness, palpitations, PND, syncope, others Gastrointestinal: denies: abdomen distended, abdominal pain, blood streaked bowels, constipated, diarrhea, dysphagia, difficulty swallowing, hematemesis, melena, nausea, poor appetite, poor fluid intake, rectal bleeding, rectal pain, vomiting, others Genitourinary: denies: abnormal vagina bleeding, burning, dyspareunia, dysuria, flank pain, frequency, hematuria, incontinence, pain, , vagina discharge, urgency, others Neurological: denies: dizziness, fainting, headache, left sided numbness, left sided weakness, numbness, paresthesia, pre-existing deficit, right sided numbness, right sided weakness, seizure, speech problems, tingling, tremors, weakness, others Musculoskeletal: reports: back pain; denies: gout, joint pain, joint swelling, muscle pain, muscle stiffness, neck pain, others Integumetry: denies: bruises, change in color, change in hair/nails, dryness, laceration, lesions, lumps, rash, wounds, others Allergic/Immunocompromised: denies: Difficulty Healing, Frequent Infections, Hives, Itching, others Hematologic/Lymphatic: denies: anemia, blood clots, easy bleeding, easy b ruising, swollen glands, others Endocrine: denies: excessive hunger, excessive sweating, excessive thirst, excessive urination, flushing, intolerance to cold, intolerance to heat, unexplained weight gain, unexplained weight loss, others Psychiatric: denies: anxiety, bipolar disorder, depression, hopeless, panic disorder, schizophrenia, sleepless, suicidal, others All Other Systems: Reviewed and Negative Physical Exam General Appearance: No Apparent Distress, Normal HEENT: Normal ENT Inspection, Pharynx Normal, TMs Normal Neck: Full Range of Motion, Non-Tender, Normal, Normal Inspection Respiratory: Chest Non-Tender, Lungs Clear, No Accessory Muscle Use, No Respiratory Distress, Normal Breath Sounds Cardiovascular: No Edema, No JVD, No Murmur, No Gallop, Normal Peripheral Pulses, Regular Rate/Rhythm Breast Exam: Deferred Gastrointestinal: No Organomegaly, Non Tender, No Pulsatile Mass, Normal Bowel Sounds, Soft Genitalia: Deferred Pelvic: Deferred Rectal: Deferred Extremities: No calf tenderness, Normal capillary refill, Normal inspection, Normal range of motion, Non-tender, No pedal edema Musculoskeletal : Location: Right (No midline tenderness. No bony step-offs on palpation. Full forward flexion-extension and lateral movements. Localized TTP to the right paraspinal lumbosacral region. Neurovascular sensation intact) Extremity Location: Back Apperance: Normal Neurologic: Alert, floorworker distributor II-XII nml as Tested, No Motor Deficits, Normal Affect, Normal Mood, No Sensory Deficits Cerebellar Function: Normal Reflexes: Normal Skin: Dry, Normal Color, Warm Lymphatic: No Adenopathy Was a procedure done? Was a procedure done?: No Back Pain Differential Dx Differential Diagnosis: Musculoskeletal Pain X-Ray, Labs, Meds, VS Vital Signs Date Time Temp Pulse Resp B/P (MAP) Pulse Ox O2 Delivery O2 Flow Rate FiO2 01/06/25 14:46 98.8 84 18 139/88 (105) 97 98.8 01/06/25 13:15 98.8 84 18 139/88 97 98.8 Current Medications Medications (Trade) Dose Ordered Sig/Hannah Route Start Time Stop Time Status Last Admin Ketorolac Tromethamine (Toradol Injection) 60 mg ONCE ONCE IM 01/06/25 14:00 01/06/25 14:05 DC 01/06/25 14:12 X-Ray, Labs, Meds, VS Comment 54-year-old female presents to the ER with a the chief complaint of back pain S/P fall. Patient arrives alert and oriented, ABC's intact, afebrile, vital signs stable, saturating well in room air Patient was given: Ketorolac injection. Tolerated medications with no adverse reaction. Additional MDM Review of External, Non-ED records: External records reviewed. Discussion with independent historian (EMS, family) history obtained from the patient/parents (if applicable) at bedside Chronic conditions affecting care: None Social determinants of health affecting care: None Consideration of admission (observation or admission): I considered escalation of care to admission for this patient, however given the reassuring workup, the patient is safe for outpatient management. Discussion with the Radiology: No Tests considered but not performed: Prescription medication considered but not given: 12 lead EKG interpretation: Time of 1ST Reevaluation: 15:00 Reevaluation 1ST: Unchanged Patient Education/Counseling: Diagnosis, Treatment, Prognosis Family Education/Counseling: No Family Present SEPSIS Sepsis Screen Date sepsis recognized/suspect: Jan 06, 2025 Time Sepsis recognized/suspect: 1314 Recent Procedure: No On Antibiotic Therapy: No Respiratory Rate >20: No Heart Rate >90: No Temp<36 C (96.8 F) or >38.3 C: No SBP <90 or MAP <65 mmHG: No New Acute Mental Status Change: No Is the patient on CPAP, BIPAP,: No Vital Signs Date Time Temp Pulse Resp B/P (MAP) Pulse Ox O2 Delivery O2 Flow Rate FiO2 01/06/25 14:46 98.8 84 18 139/88 (105) 97 98.8 01/06/25 13:15 98.8 84 18 139/88 97 98.8 Medications Medications Dose Ordered Sig/Hannah Route Start Time Stop Time Status Last Admin Dose Admin Ketorolac Tromethamine 60 mg ONCE ONCE IM 01/06/25 14:00 01/06/25 14:05 DC 01/06/25 14:12 Departure 1 Departure Time of Disposition: 15:01 Impression: Primary Impression: Back pain Qualified Codes: M54.50 - Low back pain, unspecified Disposition: 01 HOME / SELF CARE / HOMELESS Condition: Stable e-Prescriptions Tramadol HCl (Tramadol HCl) 50 Mg Tab 50 MG PO Q8HP PRN for 2 Days, #6 TAB 0 Refills Prov: EL WINTERS ASSURANCE SENIOR MANAGER INSURANCE 01/06/25 Discharged With: Self Critical Care Note Critical Care Time?: No Stability Stability form required: No Heart Score Heart Score: Heart Score Response (Comments) Value History N/A 0 EKG N/A 0 Age N/A 0 Risk Factors N/A 0 Troponin N/A 0 Total 0 I personally scribed for EL WINTERS ASSURANCE SENIOR MANAGER INSURANCE ([email or web address]) on 01/06/25 at 15:03. Electronically submitted by Maxim Huertas ([email or web address]). EL WINTERS NP Jan 06, 2025 13:58
[2025-01-06] MEDS: KETOROLAC TROMETH 60MG/2ML VIAL IM ONE (14:12)
[2025-01-06 14:46] VITALS: BP 139/88; PULSE 84; RESP 18; TEMP 98.8; O2SAT 97
== END 2025-01-06 14:47 | disposition home or self-care (01) ==
LOC: ER 13:12
DX: M54.50 Low back pain, unspecified (principal); E11.9 Type 2 diabetes mellitus without complications; M19.90 Unspecified osteoarthritis, unspecified site; Z98.51 Tubal ligation status; W18.39XA Other fall on same level, initial encounter; Y93.01 Activity, walking, marching and hiking; Y92.89 Other specified places as the place of occurrence of the external cause; Y99.8 Other external cause status
CPT/HCPCS: 96372; 99283; J1885

== ENCOUNTER 2025-03-12 08:34 | Outpatient (CLI) | payer MEDICAID ==
[~2025-03-12 08:34] MED LIST changes: +TRAM-626 PO; -ZOFR4T PO
[2025-03-12 08:58] LABS: Hematocrit 42.0 % (36.0-46.0); Hemoglobin 13.9 g/dL (12.2-16.2); Mean Corpuscular Hemoglobin 27.2 pg (28.0-32.0); Mean Corpuscular Volume 81.9 fL (80.0-100.0); Nucleated Red Blood Cells % 0.0 %
[2025-03-12 09:42] LABS: Alanine Aminotransferase 28 U/L (7-40); Albumin 4.1 g/dL (3.2-4.8); Anion Gap 11 (5-15); BUN/Creatinine Ratio 9.8 (10.0-20.0); Calcium 9.7 mg/dL (8.7-10.4); Carbon Dioxide 28 mmol/L (20-31); Chloride 106 mmol/L (98-107); Glucose 86 mg/dL (74-106); HDL Cholesterol 45 mg/dL (40-59); Potassium 3.6 mmol/L (3.5-5.1); Sodium 145 mmol/L (136-145); Total Protein 7.2 g/dL (5.7-8.2); Triglycerides 124 mg/dL (< 150)
[2025-03-12 09:43] LABS: Bilirubin, Total 0.5 mg/dL (0.2-1.0)
[2025-03-12 09:44] LABS: Urine Protein, UAD TRACE (Negative)
[2025-03-12 09:55] LABS: Alkaline Phosphatase 125 U/L (46-116); Blood Urea Nitrogen 8 mg/dL (9-23); Cholesterol 214 mg/dL (< 200)
[2025-03-12 09:56] LABS: Microalb/Creat Ratio, Urine 3.0
== END 2025-03-12 17:00 | disposition home or self-care (01) ==
LOC: LAB 08:34
PROVIDERS: ATTEND Nurse Practitioner Family
DX: E11.9 Type 2 diabetes mellitus without complications (principal); E78.5 Hyperlipidemia, unspecified; E55.9 Vitamin D deficiency, unspecified
CPT/HCPCS: 36415; 80053; 80061; 81001; 82043; 82306; 82570; 82607; 82746; 83036; 85025